=== PATIENT | male | born 1960 | race Caucasian/White ===

== ENCOUNTER → 2020-05-19 10:07 | Outpatient (BNVA) | payer MEDICAID, SELFPAY | PROVIDERS: Family Provider Family Medicine; PCP Family Medicine; Visit Provider Nurse Practitioner Family | DX: R53.83 Other fatigue (principal); E55.9 Vitamin D deficiency, unspecified; D64.9 Anemia, unspecified; E78.2 Mixed hyperlipidemia; I51.9 Heart disease, unspecified; E03.9 Hypothyroidism, unspecified; M10.9 Gout, unspecified | CPT/HCPCS: 36415; 80053; 80061; 81001; 82306; 82607; 82746; 83540; 84402; 84403; 84443; 84550; 85025 ==

== ENCOUNTER → 2020-07-17 11:44 | Outpatient (BNVA) | payer MEDICAID, SELFPAY | PROVIDERS: Family Provider Family Medicine; PCP Family Medicine; Visit Provider Nurse Practitioner Family | DX: I10 Essential (primary) hypertension (principal); J22 Unspecified acute lower respiratory infection; R10.11 Right upper quadrant pain; K04.7 Periapical abscess without sinus; K08.89 Other specified disorders of teeth and supporting structures | CPT/HCPCS: 71046; 74018; 80053; 81003; 85025 ==

== ENCOUNTER → 2020-07-22 10:41 | Outpatient (BNVA) | payer MEDICAID, SELFPAY | PROVIDERS: Family Provider Family Medicine; PCP Family Medicine; Visit Provider Nurse Practitioner Family | DX: J18.9 Pneumonia, unspecified organism (principal); F41.9 Anxiety disorder, unspecified | CPT/HCPCS: 71046 ==

== ENCOUNTER → 2020-12-14 10:43 | Outpatient (BNVA) | payer OTHER, MEDICAID, SELFPAY | PROVIDERS: Family Provider Family Medicine; PCP Family Medicine; Visit Provider Nurse Practitioner Family | DX: I10 Essential (primary) hypertension (principal); D64.9 Anemia, unspecified; E03.9 Hypothyroidism, unspecified; E78.2 Mixed hyperlipidemia; E55.9 Vitamin D deficiency, unspecified; Z79.899 Other long term (current) drug therapy; R74.8 Abnormal levels of other serum enzymes; R06.02 Shortness of breath; K04.7 Periapical abscess without sinus; F41.9 Anxiety disorder, unspecified | CPT/HCPCS: 71046; 80053; 80061; 81003; 82306; 82607; 83036; 83550; 84443; 85025 ==

== ENCOUNTER → 2020-12-15 09:05 | Outpatient (BNVA) | payer OTHER, MEDICAID, SELFPAY | PROVIDERS: Family Provider Family Medicine; PCP Family Medicine; Visit Provider Nurse Practitioner Family | DX: R74.8 Abnormal levels of other serum enzymes (principal); I10 Essential (primary) hypertension; D64.9 Anemia, unspecified; E03.9 Hypothyroidism, unspecified; E78.2 Mixed hyperlipidemia; E55.9 Vitamin D deficiency, unspecified; Z79.899 Other long term (current) drug therapy; R06.02 Shortness of breath; K04.7 Periapical abscess without sinus; J90 Pleural effusion, not elsewhere classified; F41.8 Other specified anxiety disorders | CPT/HCPCS: 86803 ==

== ENCOUNTER 2020-12-21 07:40 | Outpatient (CLI) | payer OTHER, MEDICAID, SELFPAY ==
--- NOTE | 2020-12-21 08:00 | US_ITS ---
WS: [id number] ULTRASOUND ABDOMEN LIMITED CLINICAL INFORMATION: R74.8 - Abnormal levels of other serum enzymes COMPARISON: None. FINDINGS: Liver Size: Normal. Craniocaudal length: 15.0 cm. Echogenicity: Dense coarse Surface nodularity: Present Mass (size and location): None. Bile ducts Intrahepatic ducts: Normal. Common bile duct diameter: 0.5 cm. Gallbladder Mild gallbladder wall thickening with mild edema may be related to liver disease Gallstones: None. Gallbladder sludge: None. Gallbladder wall thickenin.3 mm Pericholecystic fluid: None. Sonographic Lynn sign: Absent. Pancreas Echogenic can be seen with fatty infiltration Right kidney: Normal. Hydronephrosis: None. Size: 10.2 cm x 4.5 cm x 4.5 cm. Abdominal aorta and IVC Visualized portions are normal. Ascites: Present US/US abdomen limited [id number] IMPRESSION: 1. Slightly cirrhotic contour to the liver with diffuse fatty infiltration. Pe rihepatic ascites about the liver. Small right pleural effusion. Recommend leonardo elation with liver function tests. 2. Gallbladder is contracted with diffuse gallbladder wall thickening and mil d edema likely related to liver disease. No cholelithiasis. 3. Normal common bile duct. 4. No hydronephrosis in right kidney.
== END 2020-12-21 07:41 | disposition home or self-care (01) ==
PROVIDERS: PCP Nurse Practitioner Family; Visit Provider Nurse Practitioner Family
DX: R74.8 Abnormal levels of other serum enzymes (principal)
CPT/HCPCS: 76705

== ENCOUNTER 2021-01-20 09:22 | Outpatient (CLI) | payer OTHER, MEDICAID, SELFPAY ==
[2021-01-20] MEDS: iohexol 300 mg/mL 50 mL Btl PO (10:01)
--- NOTE | 2021-01-20 11:00 | CT_ITS ---
WS: [id number] CT ABDOMEN WITH AND WITHOUT CONTRAST HISTORY: R10.11 - Right upper quadrant pain 3 and postcontrast imaging through the abdomen. Oral contrast has been provided. Coronal and sagittal reformats are submitted. All CT scans at [facility] use at least one of these dose optim ization techniques: automated exposure control; mA and/or kV adjustment per patient size (includes ta rgeted exams where dose is matched to clinical indication); or iterative reconstruction. CONTRAST: Omnipaque 300; 95 mL IV. DLP: 1284.74 mGycm COMPARISON: 12/21/2020 ultrasound. Lower thorax: Moderate RIGHT and small LEFT pleural effusions. Compressive atelectasis with edema at the lung bases. There is marked enlargement of the heart chambers. No pericardial effusion. Liver: Very heterogeneous liver. No discrete masses or bile duct dilatation. Liver is of diffusely lo w attenuation with loss of the normal landmarks. Gallbladder: Normal. Pancreas: Small atrophic pancreas. Spleen: Normal. Adrenals: Normal. Right kidney: Normal. Left kidney: Normal. Aorta: Normal size aorta. IVC filter present the level of the renal veins. GI tract: Normal. Moderate amount of ascites throughout the abdomen.. Perisplenic fluid. Fluid extends into the paracolic gutters and there is also mesenteric edema. Abdominal wall: No hernia. 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 CT/CT abdomen wo/w con [id number] IMPRESSION: 1. Moderate ascites and mesenteric edema and anasarca. 2. Moderate RIGHT and small LEFT pleural effusion. 3. Marked cardiomegaly. 4. Cirrhosis with normal size spleen. 5. IVC filter.
[2021-01-20] MEDS: iohexol 300 mg/mL 100 mL Btl IV (11:22)
== END 2021-01-20 09:23 | disposition home or self-care (01) ==
PROVIDERS: PCP Nurse Practitioner Family; Visit Provider Nurse Practitioner Family
DX: R10.11 Right upper quadrant pain (principal); K74.60 Unspecified cirrhosis of liver; I51.7 Cardiomegaly; J90 Pleural effusion, not elsewhere classified; R18.8 Other ascites
CPT/HCPCS: 74170; Q9967

== ENCOUNTER → 2021-01-22 12:03 | Outpatient (BNVA) | payer OTHER, MEDICAID, SELFPAY | PROVIDERS: PCP Nurse Practitioner Family; Visit Provider Nurse Practitioner Family | DX: S69.91XA Unspecified injury of right wrist, hand and finger(s), initial encounter (principal); X58.XXXA Exposure to other specified factors, initial encounter | CPT/HCPCS: 73110 ==

== ENCOUNTER 2021-01-29 10:16 | Inpatient (IN) | payer MEDICARE, OTHER, MEDICAID, SELFPAY ==
[2021-01-29] VITALS (11 sets, daily range): BP systolic 93–108; BP diastolic 64–76; PULSE 40–69; RESP 18–32; TEMP 36.4–36.7; O2SAT 88–100; BMI 25.8
[2021-01-29 10:37] LABS: Glucose Point of Care 105 mg/dL (70-110)
--- NOTE | 2021-01-29 10:44 | XR_ITS ---
WS: [id number] Portable AP upright chest, 01/29/2021 Clinical Data: dyspnea/cough Comparison: PA and lateral chest, 12/14/2020. Findings: The bilateral pleural effusions remain the same. There are now patchy opacities in both low er lobes. The upper lobes are spared. The heart is enlarged. No masses are seen. There are monitor le ads on the chest wall. XR/XR chest 1V portable [id number] Impression: 1. No change in bilateral pleural effusions. 2. Development of bilateral lower lobe patchy opacities recommend follow-up [facility] st x-ray in one to 2 days.
[2021-01-29 10:47] LABS: Glucose Point of Care 96 mg/dL (70-110)
--- NOTE | 2021-01-29 10:51 | ED_ITS ---
HPI - Weakness General: Chief complaint: Weakness Stated complaint: LOW BLOOD SUGAR/ JAUNDICED Time Seen by Provider: 01/29/21 10:28 History of Present Illness: HPI Narrative: 60-year-old male brought into the ER by EMS unable to get out of bed this morning. The EMS reports that he has been declining over the last few days. He had a visit in the primary care office last week he was being evaluated for abdominal pain according his notes he has a history of heavy drinking. Patient had been seen recently by his primary care provider and they had scheduled him to be seen in evaluation for his worsening liver function and increasing jaundice thought to be due to alcoholic cirrhosis. He has not yet had that evaluation. He has had some cough and shortness of breath no vomiting or diarrhea. No hematochezia or hematemesis. MD Complaint: generalized weakness Onset (ago): day(s) Duration: progressively worsening Location: generalized Severity: moderate Relieving factors: none Exacerbating factors: none Associated symptoms: Reports confusion, decreased appetite, nausea and short of breath; Denies chest pain, chills, diaphoresis, dysuria, easy bruising, fever(s), headache(s), myalgias, rash, syncope or vomiting Review of Systems General: Reports: ROS unobtainable due to mental status Const: Denies: fever(s), chills or diaphoresis Card: Denies: chest pain or syncope GI: Reports: nausea; Denies: vomiting : Denies: dysuria Neuro: Reports: confusion; Denies: headache(s) Tj/Lymph: Denies: easy bruising PFS ED PFSH: Medical History (Updated 01/29/21 @ 16:27 by Abdoulaye Benavidez DO) Abdominal pain Anemia Anxiety Anxiety and depression Bacterial conjunctivitis Cardiomegaly Cirrhosis COPD (chronic obstructive pulmonary disease) Coronary artery disease Dental infection Elevated alkaline phosphatase level Essential hypertension Fatigue Gout History of smoking 25-50 pack [address] History of ST elevation myocardial infarction (STEMI) Hypothyroidism Impacted cerumen of right ear Ischemic cardiomyopathy Lower respiratory infection Medication management Mixed hyperlipidemia Nasal congestion Nausea and vomiting Pain, dental Pleural effusion Pleural effusion Pulmonary hypertension Right wrist injury RUQ pain Shortness of breath Symptoms of urinary tract infection Vasculogenic erectile dysfunction Vitamin D deficiency Surgical History S/P CABG x 4 Status post coronary artery stent placement Status post insertion of inferior vena caval filter Social History Smoking and tobacco status: never smoked Alcohol intake: never Physical Exam Const: COMMON NORMALS: no acute distress GENERAL APPEARANCE: cooperative and comfortable ORIENTATION/CONSCIOUSNESS: Yes awake, Yes oriented to person, Yes oriented to place and Yes oriented to time HENMT: COMMON NORMALS: normocephalic, atraumatic and hearing grossly normal bilaterally HEAD & SCALP: normocephalic and atraumatic Neck/C-Spine: COMMON NORMALS: no JVD Resp: COMMON NORMALS: normal respiratory effort, No retractions, No use of accessory muscles and clear to auscultation bilaterally AUSCULTATION: clear to auscultation bilaterally Cardio: COMMON NORMALS: no JVD, regular rate, regular rhythm and No murmurs present (Cardio) RATE: regular rate RHYTHM: regular rhythm GI: COMMON NORMALS: Soft to palpation and No hepatosplenomegaly present AUSCULTATION: Yes normoactive bowel sounds PALPATION: Yes Soft to palpation, No Tenderness to palpation present (GI), No Guarding due to palpation present (GI) and Yes No hepatosplenomegaly present Extremity: COMMON NORMALS: normal to inspection, capillary refill normal, no clubbing, cyanosis or edema, no calf tenderness and no pedal edema Neuro: SENSORIUM/ORIENTATION: Yes oriented to person, Yes oriented to place and Yes oriented to time Skin: COMMON NORMALS: no rashes or lesions noted GENERAL SKIN EXAM: no rashes or lesions noted Course Vital Signs: Vital signs: Vital Signs Temperature 97.6 F 01/29/21 10:18 Pulse Rate 62 01/29/21 16:19 Respiratory Rate 21 H 01/29/21 16:19 Blood Pressure 105/64 01/29/21 16:19 Pulse Oximetry 94 01/29/21 16:19 MDM - Weakness MDM Narrative: Medical decision making narrative: INR and T bili are markedly elevated suspect is from the stress of the pneumonia we will treat him for his pneumonia fluid hydration discussed with hepatology at [place] they did not feel there is anything different they would do at this point although they do think they will need to see him at some point to evaluate him as a transplant candidate discussed Dr. Pressley he is willing to accept the patient orders written. Lab Data: Labs: Lab Results 01/29/21 01/29/21 01/29/21 Range/Units 10:28 10:45 11:00 WBC (4.0-10.0) 10^3/ uL RBC (4.1-5.3) 10^6/u L Hgb (11.7-16.6) g/dL Hct (42.0-52.0) % MCV (80-94) fL MCH (28.0-34.0) pg MCHC (30.0-36.0) g/dL RDW (12.1-15.1) % Plt Count (130-400) 10^3/c mm MPV (7.4-10.4) fL Neut % (Auto) % Lymph % (Auto) % [place] % (Auto) % Eos % (Auto) % Baso % (Auto) % Neut # (Auto) (1.8-7.7) 10^3/u L Lymph # (Auto) (0.8-4.8) 10^3/u L [place] # (Auto) (0.2-0.9) 10^3/u L Eos # (Auto) (0.0-0.8) 10^3/u L Baso # (Auto) (0.0-0.1) 10^3/u L Nucleated RBC % (a uto) % Nucleated RBCs # /100WBC PT (12.1-14.9) SECO NDS INR (0.8-1.2) APTT (23.9-36.7) SECO NDS Specimen Type Arterial Sample Site Radial, left ABG pH 7.44 (7.35-7.45) ABG pCO2 33.0 L (35-45) mmHg ABG pO2 94.8 (80.0-100.0) mmH g ABG HCO3 22.3 (22-26) mmol/L ABG O2 Saturation 97.8 ABG Base Excess -1.2 (-2.0-2.0) mmol/ L Gume Test Pos A-a O2 Gradient 8.3 (5-10) mmHg Hematocrit 43.1 (42-52) % Hgb O2 Saturation 95.8 (95-100) % Carboxyhemoglobin 1.2 (0.4-20.1) %THgb Methemoglobin 0.8 (0.4-1.5) % Total Hemoglobin 14.1 (14-18) g/dL Sodium 135.0 (131-143) mmol/L Potassium 3.5 (3.5-5.0) mmol/L Glucose 88.0 (70-115) mg/dL Ionized Calcium 1.0 L (1.1-1.4) mmol/L O2 Delivery Device Nc O2 Liters/Min 2.0 % FiO2 28.0 % Asbestos Cement Sheet Supervisor ID Ed Chloride (98-107) mmol/L Carbon Dioxide (22-29) mmol/L Anion Gap (5-19) BUN (8-23) mg/dL Creatinine (0.7-1.2) mg/dL GFR Calculation (90-130) mL/min POC Glucose 105 96 (70-110) mg/dL Calculated Osmolal ity (285-295) mOsm/k g Lactic Acid (0.5-2.2) mmol/L Calcium (8.5-10.5) mg/dL Magnesium (1.7-2.3) mg/dL Total Bilirubin (0.15-1.2) mg/dL AST (0-40) U/L ALT (0-41) U/L Alkaline Phosphata se (40-130) IU/L Ammonia (16-60) umol/L Creatine Kinase (39-308) U/L Troponin T Baselin e (0-15) ng/L Total Protein (6.6-8.7) g/dL Albumin (3.5-5.2) g/dL Globulin (1.3-4.6) g/dL Lipase (13-60) U/L Urine Color (Yellow) Urine Appearance (CLEAR) Urine pH (5-7) Ur Specific Gravit y (1.005-1.030) Urine Protein (Negative) Urine Glucose (UA) (Normal) Urine Ketones (Negative) Urine Blood (Negative) Urine Nitrate (Negative) Urine Bilirubin (Negative) Urine Urobilinogen (Negative) mg/dL Ur Leukocyte Ruthie ase (Negative) Urine RBC (0-2) /hpf Urine WBC (0-5) /hpf Ur Squamous Epith Cells (0-5) /hpf Amorphous Sediment Urine Bacteria (NONE) /hpf Urine Mucus /hpf Digoxin (0.6-1.2) ng/mL 01/29/21 01/29/21 01/29/21 Range/Units 11:08 11:08 11:08 WBC 8.0 (4.0-10.0) 10^3/ uL RBC 5.63 H (4.1-5.3) 10^6/u L Hgb 13.7 (11.7-16.6) g/dL Hct 41.2 L (42.0-52.0) % MCV 73.2 L (80-94) fL MCH 24.3 L (28.0-34.0) pg MCHC 33.3 (30.0-36.0) g/dL RDW 22.5 H (12.1-15.1) % Plt Count 185 (130-400) 10^3/c mm MPV 10.8 H (7.4-10.4) fL Neut % (Auto) 79.7 % Lymph % (Auto) 12.1 % [place] % (Auto) 4.1 % Eos % (Auto) 3.0 % Baso % (Auto) 0.7 % Neut # (Auto) 6.41 (1.8-7.7) 10^3/u L Lymph # (Auto) 1.0 (0.8-4.8) 10^3/u L [place] # (Auto) 0.3 (0.2-0.9) 10^3/u L Eos # (Auto) 0.2 (0.0-0.8) 10^3/u L Baso # (Auto) 0.1 (0.0-0.1) 10^3/u L Nucleated RBC % (a uto) 0 % Nucleated RBCs # 0.0 /100WBC PT (12.1-14.9) SECO NDS INR (0.8-1.2) APTT (23.9-36.7) SECO NDS Specimen Type Sample Site ABG pH (7.35-7.45) ABG pCO2 (35-45) mmHg ABG pO2 (80.0-100.0) mmH g ABG HCO3 (22-26) mmol/L ABG O2 Saturation ABG Base Excess (-2.0-2.0) mmol/ L Gume Test A-a O2 Gradient (5-10) mmHg Hematocrit (42-52) % Hgb O2 Saturation (95-100) % Carboxyhemoglobin (0.4-20.1) %THgb Methemoglobin (0.4-1.5) % Total Hemoglobin (14-18) g/dL Sodium (131-143) mmol/L Potassium (3.5-5.0) mmol/L Glucose (70-115) mg/dL Ionized Calcium (1.1-1.4) mmol/L O2 Delivery Device O2 Liters/Min % FiO2 % Asbestos Cement Sheet Supervisor ID Chloride (98-107) mmol/L Carbon Dioxide (22-29) mmol/L Anion Gap (5-19) BUN (8-23) mg/dL Creatinine (0.7-1.2) mg/dL GFR Calculation (90-130) mL/min POC Glucose (70-110) mg/dL Calculated Osmolal ity (285-295) mOsm/k g Lactic Acid 1.5 (0.5-2.2) mmol/L Calcium (8.5-10.5) mg/dL Magnesium (1.7-2.3) mg/dL Total Bilirubin (0.15-1.2) mg/dL AST (0-40) U/L ALT (0-41) U/L Alkaline Phosphata se (40-130) IU/L Ammonia (16-60) umol/L Creatine Kinase (39-308) U/L Troponin T Baselin e (0-15) ng/L Total Protein (6.6-8.7) g/dL Albumin (3.5-5.2) g/dL Globulin (1.3-4.6) g/dL Lipase (13-60) U/L Urine Color (Yellow) Urine Appearance (CLEAR) Urine pH (5-7) Ur Specific Gravit y (1.005-1.030) Urine Protein (Negative) Urine Glucose (UA) (Normal) Urine Ketones (Negative) Urine Blood (Negative) Urine Nitrate (Negative) Urine Bilirubin (Negative) Urine Urobilinogen (Negative) mg/dL Ur Leukocyte Ruthie ase (Negative) Urine RBC (0-2) /hpf Urine WBC (0-5) /hpf Ur Squamous Epith Cells (0-5) /hpf Amorphous Sediment Urine Bacteria (NONE) /hpf Urine Mucus /hpf Digoxin 1.7 H (0.6-1.2) ng/mL 03/04/1601/29/21 01/29/21 Range/Units 11:08 11:08 11:08 WBC (4.0-10.0) 10^3/ uL RBC (4.1-5.3) 10^6/u L Hgb (11.7-16.6) g/dL Hct (42.0-52.0) % MCV (80-94) fL MCH (28.0-34.0) pg MCHC (30.0-36.0) g/dL RDW (12.1-15.1) % Plt Count (130-400) 10^3/c mm MPV (7.4-10.4) fL Neut % (Auto) % Lymph % (Auto) % [place] % (Auto) % Eos % (Auto) % Baso % (Auto) % Neut # (Auto) (1.8-7.7) 10^3/u L Lymph # (Auto) (0.8-4.8) 10^3/u L [place] # (Auto) (0.2-0.9) 10^3/u L Eos # (Auto) (0.0-0.8) 10^3/u L Baso # (Auto) (0.0-0.1) 10^3/u L Nucleated RBC % (a uto) % Nucleated RBCs # /100WBC PT 21.00 H (12.1-14.9) SECO NDS INR 1.74 H (0.8-1.2) APTT 47.4 H (23.9-36.7) SECO NDS Specimen Type Sample Site ABG pH (7.35-7.45) ABG pCO2 (35-45) mmHg ABG pO2 (80.0-100.0) mmH g ABG HCO3 (22-26) mmol/L ABG O2 Saturation ABG Base Excess (-2.0-2.0) mmol/ L Gume Test A-a O2 Gradient (5-10) mmHg Hematocrit (42-52) % Hgb O2 Saturation (95-100) % Carboxyhemoglobin (0.4-20.1) %THgb Methemoglobin (0.4-1.5) % Total Hemoglobin (14-18) g/dL Sodium 133 L (131-143) mmol/L Potassium 4.2 (3.5-5.0) mmol/L Glucose 87 (70-115) mg/dL Ionized Calcium (1.1-1.4) mmol/L O2 Delivery Device O2 Liters/Min % FiO2 % Asbestos Cement Sheet Supervisor ID Chloride 99 (98-107) mmol/L Carbon Dioxide 21 L (22-29) mmol/L Anion Gap 17.2 (5-19) BUN 24 H (8-23) mg/dL Creatinine 2.8 H (0.7-1.2) mg/dL GFR Calculation 23.1 L (90-130) mL/min POC Glucose (70-110) mg/dL Calculated Osmolal ity 279 L (285-295) mOsm/k g Lactic Acid (0.5-2.2) mmol/L Calcium 7.6 L (8.5-10.5) mg/dL Magnesium 2.6 H (1.7-2.3) mg/dL Total Bilirubin 5.9 H (0.15-1.2) mg/dL AST 53 H (0-40) U/L ALT 32 (0-41) U/L Alkaline Phosphata se 366 H (40-130) IU/L Ammonia 56 (16-60) umol/L Creatine Kinase 214 (39-308) U/L Troponin T Baselin e (0-15) ng/L Total Protein 5.8 L (6.6-8.7) g/dL Albumin 2.3 L (3.5-5.2) g/dL Globulin 3.5 (1.3-4.6) g/dL Lipase 34 (13-60) U/L Urine Color (Yellow) Urine Appearance (CLEAR) Urine pH (5-7) Ur Specific Gravit y (1.005-1.030) Urine Protein (Negative) Urine Glucose (UA) (Normal) Urine Ketones (Negative) Urine Blood (Negative) Urine Nitrate (Negative) Urine Bilirubin (Negative) Urine Urobilinogen (Negative) mg/dL Ur Leukocyte Ruthie ase (Negative) Urine RBC (0-2) /hpf Urine WBC (0-5) /hpf Ur Squamous Epith Cells (0-5) /hpf Amorphous Sediment Urine Bacteria (NONE) /hpf Urine Mucus /hpf Digoxin (0.6-1.2) ng/mL 01/29/21 01/29/21 Range/Units 11:08 14:30 WBC (4.0-10.0) 10^3/ uL RBC (4.1-5.3) 10^6/u L Hgb (11.7-16.6) g/dL Hct (42.0-52.0) % MCV (80-94) fL MCH (28.0-34.0) pg MCHC (30.0-36.0) g/dL RDW (12.1-15.1) % Plt Count (130-400) 10^3/c mm MPV (7.4-10.4) fL Neut % (Auto) % Lymph % (Auto) % [place] % (Auto) % Eos % (Auto) % Baso % (Auto) % Neut # (Auto) (1.8-7.7) 10^3/u L Lymph # (Auto) (0.8-4.8) 10^3/u L [place] # (Auto) (0.2-0.9) 10^3/u L Eos # (Auto) (0.0-0.8) 10^3/u L Baso # (Auto) (0.0-0.1) 10^3/u L Nucleated RBC % (a uto) % Nucleated RBCs # /100WBC PT (12.1-14.9) SECO NDS INR (0.8-1.2) APTT (23.9-36.7) SECO NDS Specimen Type Sample Site ABG pH (7.35-7.45) ABG pCO2 (35-45) mmHg ABG pO2 (80.0-100.0) mmH g ABG HCO3 (22-26) mmol/L ABG O2 Saturation ABG Base Excess (-2.0-2.0) mmol/ L Gume Test A-a O2 Gradient (5-10) mmHg Hematocrit (42-52) % Hgb O2 Saturation (95-100) % Carboxyhemoglobin (0.4-20.1) %THgb Methemoglobin (0.4-1.5) % Total Hemoglobin (14-18) g/dL Sodium (131-143) mmol/L Potassium (3.5-5.0) mmol/L Glucose (70-115) mg/dL Ionized Calcium (1.1-1.4) mmol/L O2 Delivery Device O2 Liters/Min % FiO2 % Asbestos Cement Sheet Supervisor ID Chloride (98-107) mmol/L Carbon Dioxide (22-29) mmol/L Anion Gap (5-19) BUN (8-23) mg/dL Creatinine (0.7-1.2) mg/dL GFR Calculation (90-130) mL/min POC Glucose (70-110) mg/dL Calculated Osmolal ity (285-295) mOsm/k g Lactic Acid (0.5-2.2) mmol/L Calcium (8.5-10.5) mg/dL Magnesium (1.7-2.3) mg/dL Total Bilirubin (0.15-1.2) mg/dL AST (0-40) U/L ALT (0-41) U/L Alkaline Phosphata se (40-130) IU/L Ammonia (16-60) umol/L Creatine Kinase (39-308) U/L Troponin T Baselin e 61 H (0-15) ng/L Total Protein (6.6-8.7) g/dL Albumin (3.5-5.2) g/dL Globulin (1.3-4.6) g/dL Lipase (13-60) U/L Urine Color Dark yellow (Yellow) Urine Appearance Sl hazy (CLEAR) Urine pH 5 (5-7) Ur Specific Gravit y 1.020 (1.005-1.030) Urine Protein 1+ H (Negative) Urine Glucose (UA) Norm (Normal) Urine Ketones Negative (Negative) Urine Blood 2+ H (Negative) Urine Nitrate Negative (Negative) Urine Bilirubin 1+ H (Negative) Urine Urobilinogen 1 H (Negative) mg/dL Ur Leukocyte Ruthie ase Negative (Negative) Urine RBC 0-4 H (0-2) /hpf Urine WBC None (0-5) /hpf Ur Squamous Epith Cells 10-15 H (0-5) /hpf Amorphous Sediment Not Reportable Urine Bacteria 1+ H (NONE) /hpf Urine Mucus Trace /hpf Digoxin (0.6-1.2) ng/mL Discharge Plan Discharge Patient Disposition: Admitted As Inpatient Admit Provider: Chapincito Pressley Clinical Impression: Pneumonia, Hepatic encephalopathy, Acute renal failure, Digoxin toxicity Condition: Stable Coding Level of Care Code ED Title Attorney for [facility] Fwd Exam Comprehensive
[2021-01-29 11:09] LABS: ABG PH Result 7.44 (7.35-7.45); Alveolar-Arterial Oxygen Gradi 8.3 mmHg (5-10); Arterial Blood Gas Hematocrit 43.1 % (42-52); Base Excess ABG -1.2 mmol/L (-2.0-2.0); Blood Gas Allen Test Pos; Blood Gas Operator Identificat ED; Blood Gas Sample Site Radial, left; Blood Gas Sample Type Arterial; Carboxyhemoglobin 1.2 %THgb (0.4-20.1); HCO3 ABG 22.3 mmol/L (22-26); HGB O2 Sat 95.8 % (95-100); Methemoglobin 0.8 % (0.4-1.5); Oxygen Device NC; Oxygen Saturation ABG 97.8; PO2 ABG 94.8 mmHg (80.0-100.0); Potassium Level - ABG 3.5 mmol/L (3.5-5.0); Total Hemoglobin 14.1 g/dL (14-18)
[2021-01-29 11:24] LABS: Basophils # 0.1 10^3/uL (0.0-0.1); Basophils % 0.7 %; Eosinophils # 0.2 10^3/uL (0.0-0.8); Hematocrit 41.2 % (42.0-52.0); Hemoglobin 13.7 g/dL (11.7-16.6); Lymphocytes % 12.1 %; Mean Corpuscular HGB Conc 33.3 g/dL (30.0-36.0); Mean Corpuscular Hemoglobin 24.3 pg (28.0-34.0); Mean Corpuscular Volume 73.2 fL (80-94); Monocytes # 0.3 10^3/uL (0.2-0.9); Monocytes % 4.1 %; Neutrophils # 6.41 10^3/uL (1.8-7.7); Neutrophils % 79.7 %; Nucleated Red Blood Cells % 0 %; Platelet Count 185 10^3/cmm (130-400); Red Blood Count 5.63 10^6/uL (4.1-5.3); Red Cell Distribution Width 22.5 % (12.1-15.1)
[2021-01-29 11:34] LABS: Mean Platelet Volume 10.8 fL (7.4-10.4)
[2021-01-29 11:37] LABS: INR 1.74 (0.8-1.2)
[2021-01-29 11:38] LABS: Partial Thromboplastin Time 47.4 SECONDS (23.9-36.7)
[2021-01-29 11:44] LABS: Digoxin 1.7 ng/mL (0.6-1.2)
[2021-01-29 11:45] LABS: Alanine Aminotransferase 32 U/L (0-41); Albumin Level 2.3 g/dL (3.5-5.2); Alkaline Phosphatase 366 IU/L (40-130); Blood Urea Nitrogen 24 mg/dL (8-23); Calcium 7.6 mg/dL (8.5-10.5); Carbon Dioxide 21 mmol/L (22-29); Chloride 99 mmol/L (98-107); Creatine Phosphokinase 214 U/L (39-308); Globulin 3.5 g/dL (1.3-4.6); Glomerular Filtration Rate 23.1 mL/min (90-130); Glucose 87 mg/dL (65-115); Lipase 34 U/L (13-60); Magnesium 2.6 mg/dL (1.7-2.3); Osmolality Calculated 279 mOsm/kg (285-295); Sodium 133 mmol/L (136-145); Total Bilirubin 5.9 mg/dL (0.15-1.2); Total Protein 5.8 g/dL (6.6-8.7)
[2021-01-29 11:46] LABS: Lactic Sepsis W/Reflex 1.5 mmol/L (0.5-2.2)
[2021-01-29 11:52] LABS: Anion Gap 17.2 (5-19); Potassium 4.2 mmol/L (3.5-5.1)
[2021-01-29 11:53] LABS: Aspartate Amino Transferase 53 U/L (0-40)
[2021-01-29] MEDS: levofloxacin-dextrose 5 % 750 MG/150 ML PREMIX 100 MG IV (11:59)
[2021-01-29] MEDS: sodium chloride 0.9% 1,000 ML 999 ML IV ×2 (11:59→14:37)
--- NOTE | 2021-01-29 12:02 | ECG_ITS ---
[facility] Test Date: 2021-01-29 Pat Name: Omer Danielle Department: Room: 254 Gender: Male [employer]ue Cutting Press Operator: : 1960 Requested By: Abdoulaye Esparza Order Number: [id number] Rayshawn MD: Rod Cheney M.D. Measurements Intervals [place] Rate: 60 P: 103 [place]: 164 QRS: 262 QRSD: 173 T: 0 QT: 474 QTc: 476 Interpretive Statements SINUS RHYTHM POSSIBLE LEFT ATRIAL ENLARGEMENT [-0.1mV P WAVE IN V1/V2] RIGHT AXIS DEVIATION [QRS AXIS > 100] RIGHT BUNDLE BRANCH BLOCK [120+ ms QRS DURATION, UPRIGHT V1, 40+ ms S IN I/aVL/V4/V5/V6] ST DEPRESSION, CONSIDER SUBENDOCARDIAL INJURY [0.1+ mV ST DEPRESSION] Compared to ECG 02/13/2019 19:01:23 ST (T wave) deviation now present T-wave abnormality no longer present Possible ischemia no longer present Myocardial infarct finding still present Electronically Signed On 01-29-2021 18:27:42 BOARD FINISHER by Rod Cheney M.D. [id number]
--- NOTE | 2021-01-29 12:06 | PC.NURSE ---
IV NS Bolus NS bolus delayed as 1000mL initiated by EMS was allowed to finished before initiating bag ordered by ED physician
[2021-01-29 12:20] LABS: Ammonia 56 umol/L (16-60)
--- NOTE | 2021-01-29 13:24 | US_ITS ---
WS: [id number] RIGHT UPPER QUADRANT ULTRASOUND HISTORY: cirrhosis COMPARISON: 12/21/[address] abdomen 01/20/2021 Liver: 13.4 cm in length. Liver is small and shrunken from cirrhosis. No bile duct dilatation. Gallbladder: Normally distended gallbladder with diffuse gallbladder wall thickening. No stones ident ified. Gallbladder wall measures up to 5 mm. CBD: 0.5 cm Pancreas: Not visualized. Right kidney: 10.3 cm in length. Normal size and echogenicity. No hydronephrosis or mass. Aorta and IVC: Unremarkable abdominal aorta and IVC. Small amount of ascites and small bilateral pleural effusions. US/US liver [id number] IMPRESSION: 1. Small amount of ascites. 2. Small RIGHT pleural effusion. 3. Advanced cirrhosis. 4. Gallbladder wall thickening due to hepatocellular disease. No stones.
--- NOTE | 2021-01-29 13:59 | PC.NURSE ---
EKG done at 1342 and shown to ER doctor.
--- NOTE | 2021-01-29 14:02 | ECG_ITS ---
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 Measurements Intervals [place] Rate: 74 P: 85 [place]: 166 QRS: 253 QRSD: 173 T: 180 QT: 358 QTc: 398 Interpretive Statements SINUS RHYTHM WITH OCCASIONAL VENTRICULAR PREMATURE COMPLEXES WITH OCCASIONAL SUPRAVENTRICULAR PREMATURE COMPLEXES INTRAVENTRICULAR CONDUCTION DELAY [130+ ms QRS DURATION] INFERIOR MYOCARDIAL INFARCTION , OF INDETERMINATE AGE [40+ ms Q WAVE AND/OR ST/T ABNORMALITY IN II/aVF] ANTEROLATERAL MYOCARDIAL INFARCTION , OF INDETERMINATE AGE [40+ ms Q WAVE IN I/aVL/V3-V6] Compared to ECG 02/13/2019 19:01:23 Ventricular premature complex(es) now present Intraventricular conduction delay now present T-wave abnormality no longer present Possible ischemia no longer present Myocardial infarct finding still present Electronically Signed On 01-29-2021 19:05:23 ROLL BUCKER by Rod Cheney M.D. [id number]
[2021-01-29 15:04] LABS: Troponin(5th) Baseline 61 ng/L (0-15)
[2021-01-29 15:09] LABS: Blood Urine 2+ (Negative); Glucose Urine UA Norm (Normal); Ketones Urine Negative (Negative); Nitrate Urine Negative (Negative); Protein Urine 1+ (Negative); Urine Appearance SL Hazy (CLEAR); Urine Color Dark Yellow (Yellow); pH Urine 5 (5-7)
[2021-01-29 15:10] LABS: Add Urine Culture? No; Add Urine Microscopic? YES; Bacteria Urine 1+ /hpf; Bilirubin Urine 1+ (Negative); Leukocyte Esterase Urine Negative (Negative); Mucus Urine TRACE /hpf; RBC Urine 0-4 /hpf (0-2); Urobilinogen Urine 1 mg/dL (Negative)
--- NOTE | 2021-01-29 15:10 | PM.HP ---
Providers/Chief Complaint Primary Care Provider: SAURABH Lam Chief Complaint: LOW BLOOD SUGAR/ JAUNDICED History of Present Illness Omer Danielle is a 60 year old male with pmh of hypothyroidism,gout,alcohol abuse, alcholic liver cirrhosis, HFrEF, a.fib, CAD S/P CABG, DVT with I.VC Filter, COPD, came in with c/o worsening weakness,physical decline,worsening mentation started started 3/4 days back.Upon arrival in the ER he was worked up for the above mentioned complaint. ER physician talked to [facility] for possible transfer given INR and T bili were elevated hepatology at [place] did not feel there is anything different they would do at this point although they do think they will need to see him at some point to evaluate him as a transplant candidate. Patient was worked up for above mention complaint. Pertinent labs in ER : Ammonia :53, INR: 1.74,T.Bili: 5.9, AST:53 ,ALT: 29 , ALP: 366, ,BUN: 24, SCR : 2.8 , Glucose: 87 , WBC:5.44, Serum Digoxin level:1.7 Pertinent imaging studies : RIGHT UPPER QUADRANT ULTRASOUND: Small amount of ascites. Small RIGHT pleural effusion. Advancedd cirrhosis. xRAY CHEST : bilateral lower lobe patchy opacities. bilateral pleural effusions. ER Medications: Digoxin immune romaine : 40 mg I.V 81 Dose as well Levofloxacin 750 mg i.v * 1 dose. I.V Hydration with N.S Review of Systems Card: Denies: palpitations Resp: Denies: dyspnea, productive cough, wheezing or pain on inspiration GI: Denies: diarrhea or constipation : Denies: flank pain or difficulty urinating Musc: Denies: back pain, extremity pain or extremity swelling Neuro: Denies: headache(s), difficulty walking or confusion Medications/Allergies Home Medications Medication Instructions Recorded Confirmed Last Taken Type neomycin 3.5 mg-polymyxin 10,000 1 drp OPHTHALMIC (EYE) BID 7 Days 12/14/20 01/29/21 Unknown Rx unit-hydrocort 10 mg/mL eye #7.5 ml drop,susp melatonin 5 mg capsule 10 mg PO BEDTIME PRN 12/17/20 01/29/21 Unknown History multivit,Ca,min-iron 8 mg-folic 1 tab PO DAILY@09 12/17/20 01/29/21 01/28/21 History acid 200 mcg-lycopene 600 mcg tablet alprazolam 0.5 mg tablet 0.5 mg PO TID PRN 30 Days #90 tab 01/15/21 01/29/21 01/28/21 Rx fluticasone propionate 50 1 spray INTRANASAL DAILY 30 Days 01/15/21 01/29/21 Unknown Rx mcg/actuation nasal #16 g spray,suspension tramadol 50 mg tablet 50 mg PO Q8H PRN 5 Days #15 tab 01/22/21 01/29/21 Unknown Rx Coreg 6.25 mg PO BID@01/29/21 01/29/21 01/28/21 History Lexapro 20 mg PO DAILY@209901/29/21 01/29/21 01/28/21 History Miralax 17 g PO DAILY PRN 01/29/21 01/29/21 Unknown History allopurinol 100 mg PO DAILY@209901/29/21 01/29/21 01/28/21 History atorvastatin 80 mg PO DAILY@209901/29/21 01/29/21 01/28/21 History clopidogrel 75 mg PO DAILY@01/29/21 01/29/21 01/28/21 History digoxin 125 mcg PO DAILY@01/29/21 01/29/21 01/28/21 History furosemide 40 mg PO DAILY@01/29/21 01/29/21 01/28/21 History levothyroxine 100 mcg PO DAILY@209901/29/21 01/29/21 01/28/21 History potassium chloride 20 meq PO DAILY@01/29/21 01/29/21 01/28/21 History Allergies Allergy/AdvReac Type Severity Reaction Status Date / Time albuterol Allergy hyperactive Verified 01/22/21 11:10 PFSH Acute PFSH: Medical History (Updated 01/29/21 @ 21:39 by Chapincito Pressley MD) Abdominal pain Anemia Anxiety Anxiety and depression Bacterial conjunctivitis Cardiomegaly Cirrhosis COPD (chronic obstructive pulmonary disease) Coronary artery disease Dental infection Elevated alkaline phosphatase level Essential hypertension Fatigue Gout History of smoking 25-50 pack [address] History of ST elevation myocardial infarction (STEMI) Hypothyroidism Impacted cerumen of right ear Ischemic cardiomyopathy Lower respiratory infection Medication management Mixed hyperlipidemia Nasal congestion Nausea and vomiting Pain, dental Pleural effusion Pleural effusion Pulmonary hypertension Right wrist injury RUQ pain Shortness of breath Symptoms of urinary tract infection Vasculogenic erectile dysfunction Vitamin D deficiency Surgical History S/P CABG x 4 Status post coronary artery stent placement Status post insertion of inferior vena caval filter Social History Smoking and tobacco status: never smoked Alcohol intake: never Vitals/I&O/Wt Last Vital Signs Temp 97.6 F 01/29/21 10:18 Pulse 62 01/29/21 13:00 Resp 20 H 01/29/21 13:00 BP 99/66 01/29/21 13:00 Pulse Ox 94 01/29/21 13:00 01/29/21 01/29/21 01/29/21 06:59 14:59 22:59 Intake Total 1204 / 1204 Balance 1204 / 1204 Weight last 48 hrs Weight 72.575 kg Physical Exam Const: COMMON NORMALS: patient oriented x3 HENMT: COMMON NORMALS: normocephalic and atraumatic HEAD & SCALP: normocephalic and atraumatic Chest: COMMONS NORMALS: normal inspection of the chest and normal palpation of entire chest wall CHEST: Yes Symmetrical chest wall rise Resp: COMMON NORMALS: normal respiratory effort and clear to auscultation bilaterally EFFORT & INSPECTION: Yes symmetric chest movement AUSCULTATION: clear to auscultation bilaterally Cardio: COMMON NORMALS: regular rate, regular rhythm, S1 normal heart sound present, S2 normal heart sound present, No gallops present (Cardio), No murmurs present (Cardio), No rub (Cardio) and Peripheral pulses 2+ throughout RATE: regular rate RHYTHM: regular rhythm HEART SOUNDS: S1 normal heart sound present and S2 normal heart sound present PERIPHERAL PULSES: Peripheral pulses 2+ throughout GI: COMMON NORMALS: Normal to inspection, nondistended, normoactive bowel sounds present, Soft to palpation, non-tender, No hepatosplenomegaly present and no masses AUSCULTATION: Yes normoactive bowel sounds PALPATION: Yes Soft to palpation and Yes No hepatosplenomegaly present RECTAL EXAM: Yes deferred Extremity: NARRATIVE EXTREMITY EXAM: 2+B/L Pitting Pedal edema present Neuro: COMMON NORMALS: patient oriented x3 Data : 01/30/21 06:28 01/30/21 06:28 Micro: Microbiology 01/29/21 11:08 Blood Culture - Preliminary Blood SPECIMEN COLLECTED 01/29/21 11:18 Blood Culture - Preliminary Blood SPECIMEN COLLECTED A&P Assessment and plan (1) Pneumonia: Continue Ceftriaxone 1 gm q24 h Daily Status: Acute (2) ARTURO (acute kidney injury): Likely prerenal 2/2 to overdiuresis. R/O HRS Baseline SCR : 1.1 Admission SCR : 2.8 Continue I.V Hydration Monitor BMP Status: Acute (3) Digoxin toxicity: Received Digoxin immune romaine : 40 mg I.V * 1 dose in ER Monitor serum dig level as well as signs of dig toxicity. Status: Acute (4) Generalized weakness: Status: Acute (5) Cirrhosis: Status: Acute Qualifiers: Ascites presence: with ascites Hepatic cirrhosis type: alcoholic cirrhosis Qualified Code(s): K70.31 - Alcoholic cirrhosis of liver with ascites (6) Elevated bilirubin: Status: Acute (7) Pleural effusion: Status: Inactive (8) Hypothyroidism: Status: Chronic Qualifiers: Hypothyroidism type: acquired Qualified Code(s): E03.9 - Hypothyroidism, unspecified (9) Physical deconditioning: Status: Acute (10) COPD (chronic obstructive pulmonary disease): Status: Acute (11) Gout: Status: Acute (12) Alcohol abuse: Status: Acute (13) Anemia: Status: Acute Qualifiers: Anemia type: unspecified type Qualified Code(s): D64.9 - Anemia, unspecified (14) Systolic heart failure: Status: Acute Additional A&P Information Code Status :Full Code DVT PPX: Heparin Disposition :Home Attestations Medical Necessity Statement*: Patient needs to be in hospital for the management of PNA,ARTURO,poor oral intake,dehydration, weakness. Anticipated LOS greater then 2 midnights. Coding Level of Care Code Acute Corrugator Operator for [facility] Fwd Exam Detailed Diagnoses Pneumonia J18.9 ARTURO (acute kidney injury) N17.9 Digoxin toxicity T46.0X1A Generalized weakness R53.1 Cirrhosis K70.31 Ascites presence: with ascites Hepatic cirrhosis type: alcoholic cirrhosis Elevated bilirubin R17 Pleural effusion J90 Hypothyroidism E03.9 Hypothyroidism type: acquired Physical deconditioning R53.81 COPD (chronic obstructive pulmonary disease) J44.9 Gout M10.9 Alcohol abuse F10.10 Anemia D64.9 Anemia type: unspecified type Systolic heart failure I50.20
[2021-01-29] MEDS: heparin 5,000 unit/mL INJ 1 mL 5000 UNIT SUBCUT (16:04)
[2021-01-29] MEDS: cefTRIAXone 1,000 MG in sodium chloride 0.9% (plus) 50 ML 100 MG IV (16:04)
[2021-01-29] MEDS: sodium chloride 0.9% 1,000 ML 125 ML IV (16:04)
[2021-01-29 16:44] LABS: Troponin 5 2HR 64.31 ng/L (0-15)
[2021-01-29 16:47] LABS: Troponin 5 2HR Delta 3.31 ABS# (0-10)
--- NOTE | 2021-01-29 18:02 | ECG_ITS ---
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 Measurements Intervals Drury Rate: 67 P: 75 TN: 106 QRS: 154 QRSD: 137 T: 37 QT: 431 QTc: 458 Interpretive Statements SINUS RHYTHM WITH SHORT TN INTERVAL INTRAVENTRICULAR CONDUCTION DELAY [130+ ms QRS DURATION] LATERAL MYOCARDIAL INFARCTION [40+ ms Q WAVE AND/OR ST/T ABNORMALITY IN I/aVL/V5/V6], OF INDETERMINATE AGE Compared to ECG 01/29/2021 13:42:03 Short TN interval now present Ventricular premature complex(es) no longer present Myocardial infarct finding still present Electronically Signed On 01-29-2021 19:01:00 ACCOUNTING INTERN by Rod Cheney M.D. [id number]
[2021-01-29 19:38] LABS: Troponin 5 6HR 64.34 ng/L (0-15); Troponin 5 6HR Delta 3.34 ng/L (0-12)
[2021-01-29] MEDS: atorvastatin 40 mg Tablet 80 MG PO (21:19)
[2021-01-29] MEDS: levothyroxine 100 mcg Tablet PO (21:19)
[2021-01-29] MEDS: allopurinol 100 mg Tablet PO (21:19)
[2021-01-30] VITALS (18 sets, daily range): BP systolic 79–113; BP diastolic 53–68; PULSE 70–81; RESP 18–36; TEMP 35.2–37.1; O2SAT 89–93
[2021-01-30] MEDS: heparin 5,000 unit/mL INJ 1 mL 5000 UNIT SUBCUT ×2 (02:27→14:28)
[2021-01-30] MEDS: sodium chloride 0.9% 1,000 ML 125 ML IV ×2 (03:50→12:50)
[2021-01-30 06:49] LABS: Basophils % 0.5 %; Eosinophils # 0.2 10^3/uL (0.0-0.8); Eosinophils % 2.8 %; Hematocrit 39.2 % (42.0-52.0); Hemoglobin 12.9 g/dL (11.7-16.6); Lymphocytes # 0.8 10^3/uL (0.8-4.8); Lymphocytes % 10.4 %; Mean Corpuscular HGB Conc 32.9 g/dL (30.0-36.0); Mean Corpuscular Hemoglobin 23.7 pg (28.0-34.0); Mean Corpuscular Volume 72.1 fL (80-94); Monocytes # 0.4 10^3/uL (0.2-0.9); Monocytes % 4.5 %; Neutrophils # 6.38 10^3/uL (1.8-7.7); Neutrophils % 81.3 %; Nucleated Red Blood Cells % 0 %; Platelet Count 159 10^3/cmm (130-400); Red Blood Count 5.44 10^6/uL (4.1-5.3); Red Cell Distribution Width 21.9 % (12.1-15.1); White Blood Count 7.9 10^3/uL (4.0-10.0)
[2021-01-30 07:12] LABS: NT Pro B Type Natriuretic Pept 22312 pg/mL (0-125); Procalcitonin 0.78 ng/mL (0-0.5); Thyroid Stimulating Hormone 2.14 uIU/mL (0.27-4.20)
[2021-01-30 07:25] LABS: Alanine Aminotransferase 29 U/L (0-41); Albumin Level 2.1 g/dL (3.5-5.2); Alkaline Phosphatase 349 IU/L (40-130); Aspartate Amino Transferase 48 U/L (0-40); Blood Urea Nitrogen 27 mg/dL (8-23); Carbon Dioxide 19 mmol/L (22-29); Chloride 103 mmol/L (98-107); Globulin 3.2 g/dL (1.3-4.6); Glomerular Filtration Rate 24.1 mL/min (90-130); Magnesium 2.3 mg/dL (1.7-2.3); Osmolality Calculated 281 mOsm/kg (285-295); Sodium 135 mmol/L (136-145); Total Bilirubin 6.1 mg/dL (0.15-1.2); Total Protein 5.3 g/dL (6.6-8.7)
[2021-01-30 07:40] LABS: Digoxin 2.1 ng/mL (0.6-1.2); Glucose 30 mg/dL (65-115)
--- NOTE | 2021-01-30 08:07 | PC.NURSE ---
TC to Dr. Pressley to notify of critical glucose of 31. PEr Dr. Pressley, dc NPO order and give patient juice and breakfast. Repeat order back to provider. ORder changed in [employer].
--- NOTE | 2021-01-30 08:09 | PC.NURSE ---
Notified Dr. Pressley via [employer] messaging of critical digoxin level of 2.1.
--- NOTE | 2021-01-30 08:10 | PC.NURSE ---
Dr. Pressley acknowledged critical digoxin level.
[2021-01-30 08:46] LABS: Glucose Point of Care 63 mg/dL (70-110)
[2021-01-30] MEDS: potassium chloride ER 20 mEq Tablet PO (09:29)
[2021-01-30] MEDS: pantoprazole DR 40 mg Tablet PO (09:30)
[2021-01-30] MEDS: fluticasone nasal spray 16gm Btl 1 SPRAY INTRANASAL (09:34)
--- NOTE | 2021-01-30 10:56 | CTR_ITS ---
PROCEDURE INFORMATION: Exam: CT Chest Without Contrast; Diagnostic Exam date and time: 01/30/2021 12:00 PM Age: 60 years old Clinical indication: Other: Ascities; Shortness of breath; Additional info: Pna and ascites TECHNIQUE: Imaging protocol: Diagnostic computed tomography of the chest without contrast. Radiation optimization: All CT scans at this facility use at least one of these dose optimization techniques: automated exposure control; mA and/or kV adjustment per patient size (includes targeted exams where dose is matched to clinical indication); or iterative reconstruction. COMPARISON: CT abdomen pelvis w con* [id number] 04/23/2019 5:09 PM RADIATION DOSE METRICS: Total DLP (mGy-cm): 1266.73 FINDINGS: Lungs: Bilateral pulmonary ground-glass opacities. Pleural spaces: There are bilateral pleural effusions with underlying compressive atelectasis or infiltrate. Heart: Multivessel atherosclerotic disease which involves the coronary arteries. Cardiomegaly. Aorta: Unremarkable. No aortic aneurysm. Lymph nodes: Unremarkable. No enlarged lymph nodes. Bones/joints: Multiple old left rib fracture sites. There is nonunion of an old fracture through the posterior left 7th rib. Soft tissues: There is soft tissue anasarca. IMPRESSION: 1. There are bilateral pleural effusions with underlying compressive atelectasis or infiltrate. In combination with cardiomegaly, findings are consistent with congestive heart failure. 2. Bilateral pulmonary ground-glass opacities likely represent pulmonary edema in this patient. Pneumonia cannot be excluded. PROCEDURE INFORMATION: Exam: CT Abdomen And Pelvis Without Contrast Exam date and time: 01/30/2021 12:00 PM Age: 60 years old Clinical indication: Other: Ascities; Shortness of breath; Additional info: Pna and ascites TECHNIQUE: Imaging protocol: Computed tomography of the abdomen and pelvis without contrast. Radiation optimization: All CT scans at this facility use at least one of these dose optimization techniques: automated exposure control; mA and/or kV adjustment per patient size (includes targeted exams where dose is matched to clinical indication); or iterative reconstruction. COMPARISON: CT abdomen pelvis w con* [id number] 04/23/2019 5:09 PM RADIATION DOSE METRICS: Total DLP (mGy-cm): 1266.73 FINDINGS: Lungs: Please see the CT scan of the thorax for description of the lung bases. Liver: Normal. No mass. Gallbladder and bile ducts: Increased density in the gallbladder is nonspecific. No discrete stones are seen. Pancreas: Normal. No ductal dilation. Spleen: Normal. No splenomegaly. Adrenal glands: Normal. No mass. Kidneys and ureters: Normal. No hydronephrosis. Stomach and bowel: See Intraperitoneal space finding. Appendix: No evidence of appendicitis. Intraperitoneal space: There is a large amount of intraperitoneal ascites. Bowel loops are somewhat obscured by adjacent ascites. There are multiple colonic diverticula.There are air-fluid levels in the distal colon suggesting mild nonspecific colitis versus other diarrheal illness. There is mucosal thickening of the distal rectosigmoid colon. Vasculature: There is an IVC filter in place. Lymph nodes: Unremarkable. No enlarged lymph nodes. Urinary bladder: Unremarkable as visualized. Reproductive: Unremarkable as visualized. Bones/joints: There degenerative changes in the spine. Lumbar levoscoliosis. There are lower lumbar disc bulges. There are moderate to severe degenerative changes across the pubic symphysis. Chronic left inferior pubic ramus fractures. There is incomplete osseous bridging across the fracture sites. Soft tissues: There is soft tissue anasarca. CT/CT chest abd pel wo con IMPRESSION: 1. There is a large amount of ascites and soft tissue anasarca, likely cardiac in origin in this patient with findings consistent with congestive heart failure. 2. There are air-fluid levels in the distal colon suggesting mild nonspecific colitis versus other diarrheal illness. 3. There is mucosal thickening of the distal rectosigmoid colon. Differential includes nonspecific colitis. Follow-up to exclude neoplasm as clinically warranted. COMMENTS: For patients with an IVC filter, recommend assessment for a management plan for the patient???s IVC filter. If there is no established management plan, recommend referral to an interventional clinician on a nonemergent basis for evaluation. Radiation Dose CTDIVOL = (mGy): DLP = 1266.73~1266.73 (mGy-cm)
--- NOTE | 2021-01-30 10:58 | USCV_ITS ---
Omer Danielle Age: 60 Gender: M : 1960 Exam Date: 01/30/2021 13:16 Ordering Phys: Chapincito Pressley MD Technologist: Suze Fregoso Exam Location: [facility] Indication: SOB BP: 92 / 59 HR: 123 Rhythm: Sinus Technical Quality: Adequate MEASUREMENTS (Male / Female) Normal Values 2D ECHO LV Diastolic Diameter PLAX 5.4 cm 4.2 - 5.9 / 3.9 - 5.3 cm LV Systolic Diameter PLAX 4.4 cm LV Chamber Size 4.1 cm IVS Diastolic Thickness 1.0 cm 0.6 - 1.0 / 0.6 - 0.9 cm IVS Systolic Thickness 1.3 cm LVPW Diastolic Thickness 1.1 cm 0.6 - 1.0 / 0.6 - 0.9 cm LVPW Systolic Thickness 1.1 cm RV Chamber Size 4.8 cm LVOT Diameter 1.9 cm LV Ejection Fraction 2D Teich 36.0 % LV Ejection Fraction MOD 2C 32.3 % LV Ejection Fraction 2C AL 31.3 % LA Diameter 3.7 cm LA Width 3.3 cm LA Height 4.8 cm RA Width 4.5 cm RA Height 6.4 cm Aorta at Sinotubular Diameter 2.6 cm M-MODE LV Diastolic Diameter MM 5.1 cm 4.2 - 5.9 / 3.9 - 5.3 cm LV Systolic Diameter MM 4.5 cm LV Ejection Fraction MM Teich 24.0 % IVS Diastolic Thickness MM 1.3 cm 0.6 - 1.0 / 0.6 - 0.9 cm IVS Systolic Thickness MM 1.6 cm LVPW Diastolic Thickness MM 1.2 cm 0.6 - 1.0 / 0.6 - 0.9 cm LVPW Systolic Thickness MM 1.1 cm RV Diastolic Diameter MM 4.6 cm Aortic Annulus Diameter 3.5 cm LA Ao Ratio MM 1.1 MV E Point Septal Separation 1.2 cm DOPPLER AV Peak Velocity 79.0 cm/s LVOT Peak Velocity 58.0 cm/s AV Area Cont Eq vti 2.0 cm squared AV Area Cont Eq pk 2.2 cm squared MV Area PHT 4.5 cm squared Mitral E to A Ratio 1.6 MV E' Velocity 29.0 cm/s Mitral E to MV E' Ratio 9.1 Mitral E to LV E' Lateral Ratio 7.5 Mitral E to LV E' Septal Ratio 11.8 TR Peak Velocity 257.7 cm/s TR Peak Gradient 26.6 mmHg TR Mean Velocity 245.1 cm/s TR Mean Gradient 25.8 mmHg TR Velocity Time Integral 114.4 cm TV Peak E Velocity 60.0 cm/s Right Atrial Pressure 8.0 mmHg Pulmonary Artery Systolic Pressu 34.6 mmHg PV Peak Velocity 47.0 cm/s RV Acceleration Time 0.1 s RV Ejection Time 0.2 s RV AcT/ET 0.4 FINDINGS Left Ventricle Severely decreased left ventricular systolic function. Global left ventricular hypokinesis. Left ventricular ejection fraction is estimated at 25 %. There appeared to be septal bounce.flattened septum in diastole consistent with right ventricle volume overload. Grade II/IV diastolic dysfunction, moderately elevated filling pressures. Right Ventricle Severely increased right ventricular size. Severely decreased right ventricular systolic function. Moderate pulmonary hypertension, RVSP 34.6 mmHg. Right Atrium Severely increased right atrial size. Left Atrium The left atrium is normal in size. Mitral Valve Moderately thickened mitral valve. No mitral valve stenosis. Trace mitral valve regurgitation. Aortic Valve Mild aortic valve calcification. No aortic valve stenosis. No aortic valve regurgitation. Tricuspid Valve Severe tricuspid valve regurgitation. Pulmonic Valve Mild pulmonary valve regurgitation. Pericardium Normal pericardium without effusion. Pleural effusion. Aorta Normal ascending aorta dimension. CONCLUSIONS 1-Severely decreased left ventricular systolic function. Global left ventricular hypokinesis. Left ventricular ejection fraction is estimated at 25 %. There appeared to be septal bounce.flattened septum in diastole consistent with right ventricle volume overload. Grade II/IV diastolic dysfunction, moderately elevated filling pressures. 2-Severely increased right ventricular size. Severely decreased right ventricular systolic function. Moderate pulmonary hypertension, RVSP 34.6 mmHg. 3-Severely increased right atrial size. 4-Severe tricuspid valve regurgitation. 5-Mild pulmonary valve regurgitation. 6-Normal pericardium without effusion. Pleural effusion. 7-Right atrial pressure is around 20 mm of mercury. 8-When compared to the prior echocardiogram dated October 03, 2018 left ventricular ejection fraction has depressed from moderately reduced 40% to severely reduced 25%, right ventricle remains severely enlarged with severely depressed ejection fraction. Tricuspid valve regurgitation remains in severe category. There appeared to be pleural effusion now. Jessica Espinoza MD (Electronically Signed) Final Date: 30 January 2021 16:25 S
[2021-01-30 11:16] LABS: Glucose Point of Care 85 mg/dL (70-110)
--- NOTE | 2021-01-30 13:34 | P.PN_ITS ---
Subjective Subjective: Interval history: Patient was seen and examined this morning,he was having confusion and was definitely not at his baseline mentation. He was telling that his will pick him up.He was also tachypenic. He has remained afebrile.His vitals and labs have been reviewed. Medications: Reviewed: Yes Vitals/I&O/Wt Last Vital Signs Temp 98.0 F 01/30/21 12:00 Pulse 78 01/30/21 12:20 Resp 18 01/30/21 12:00 BP 113/68 01/30/21 12:00 Pulse Ox 92 01/30/21 12:20 01/29/21 01/30/21 01/30/21 22:59 06:59 14:59 Intake Total 1000 / 2204 1000 / 3204 1236 / 1236 Balance 1000 / 2204 1000 / 3204 1236 / 1236 Weight last 48 hrs Weight 72.257 kg Weight 72.575 kg Physical Exam Narrative: EXAM NARRATIVE: Awake HENMT: COMMON NORMALS: normocephalic and atraumatic HEAD & SCALP: normocephalic and atraumatic Chest: OTHER: B/L Wheezing Present in both lungs breaux. Resp: EFFORT & INSPECTION: Yes symmetric chest movement Cardio: COMMON NORMALS: regular rate, regular rhythm, S1 normal heart sound present, S2 normal heart sound present, No gallops present (Cardio), No murmurs present (Cardio), No rub (Cardio) and Peripheral pulses 2+ throughout RATE: regular rate RHYTHM: regular rhythm HEART SOUNDS: S1 normal heart sound present and S2 normal heart sound present PERIPHERAL PULSES: Peripheral pulses 2+ throughout GI: COMMON NORMALS: Normal to inspection, nondistended, normoactive bowel sounds present, Soft to palpation, non-tender, No hepatosplenomegaly present and no masses AUSCULTATION: Yes normoactive bowel sounds PALPATION: Yes Soft to palpation and Yes No hepatosplenomegaly present RECTAL EXAM: Yes deferred Extremity: NARRATIVE EXTREMITY EXAM: 2+B/L Pitting Pedal edema present Urinary Catheter Management^: Tsai: Cath Placed During This Visit: yes Reason for Continuing Indwelling Catheter: Accurate Measurement of Urinary Output in Critically Ill Patients Urinary Catheter Date of Insertion: 01/29/21 Urinary Catheter Time of Insertion: 14:30 Data : 01/30/21 06:28 01/30/21 06:28 Micro: Microbiology 01/29/21 11:18 Blood Culture - Preliminary Blood NEGATIVE TO DATE 01/29/21 11:08 Blood Culture - Preliminary Blood NEGATIVE TO DATE A&P Assessment and plan (1) Encephalopathy: Metabolic encephalopathy v/s Hepatic encephalopathy: Currently Ammonia : Is Normal Continue Lactulose 30 mg TID Continue Cef 1 gm q24 h daily Albumin 25 mg TID Correct electrolytes Will consider Rifaximin. Status: Acute (2) Pneumonia: Continue Ceftriaxone 1 gm q24 h Daily Status: Acute (3) Systolic heart failure: HFrEF: 2D Echo : Severely decreased left ventricular systolic function. Global left ventricular hypokinesis. Left ventricular ejection fraction is estimated at 25 %. There appeared to be septal bounce.flattened septum in diastole consistent with right ventricle volume overload. Grade II/IV diastolic dysfunction,moderately elevated filling pressures.Severely increased right ventricular size. Severely decreased right ventricular systolic function. Moderate pulmonary. I/O Charting Lasix 40 mg I.V Daily Daily Weight. Status: Acute (4) ARTURO (acute kidney injury): Likely CRS : R/O HRS Baseline SCR : 1.1 Admission SCR : 2.8 Monitor BMP Status: Acute (5) Digoxin toxicity: Received Digoxin immune romaine : 40 mg I.V * 1 dose in ER Monitor serum dig level as well as signs of dig toxicity. Status: Acute (6) Ascites: C.T Abdomen and pelvis done : There is a large amount of ascites and soft tissue anasarca, likely cardiac in origin in this patient with findings consistent with congestive heart failure. Currently do not have abdominal pain. Will Do paracentesis to r/o SBP as well as cell cytology for possible malignancy work up ( HCC ) Currently on Cef 1 gm q24 h daily Status: Acute (7) Generalized weakness: Status: Acute (8) Cirrhosis: Decompensated Alchoilic Liver Cirrhosis: MELD :Na : 30 : (52.6)% Estimated 3 Months Mortality. Status: Acute Qualifiers: Hepatic cirrhosis type: alcoholic cirrhosis Ascites presence: with ascites Qualified Code(s): K70.31 - Alcoholic cirrhosis of liver with ascites (9) Elevated bilirubin: Status: Acute (10) Pleural effusion: Status: Inactive (11) Hypothyroidism: Status: Chronic Qualifiers: Hypothyroidism type: acquired Qualified Code(s): E03.9 - Hypothyroidism, unspecified (12) Physical deconditioning: Status: Acute (13) COPD (chronic obstructive pulmonary disease): Status: Acute (14) Gout: Status: Acute (15) Alcohol abuse: Status: Acute (16) Anemia: Status: Acute Qualifiers: Anemia type: unspecified type Qualified Code(s): D64.9 - Anemia, unspecified Additional A&P Information Code Status :Full Code DVT PPX: Heparin Disposition :Home Attestations Medical Necessity Statement*: Patient needs to be in hospital for the management of encephalopathy/ARTURO/HF/Decompensated liver cirhhosis/PNA Coding Level of Care Code Acute Director Of Admissions for [facility] Fwd Diagnoses Encephalopathy G93.40 Pneumonia J18.9 Systolic heart failure I50.20 ARTURO (acute kidney injury) N17.9 Digoxin toxicity T46.0X1A Ascites R18.8 Generalized weakness R53.1 Cirrhosis K70.31 Hepatic cirrhosis type: alcoholic cirrhosis Ascites presence: with ascites Elevated bilirubin R17 Pleural effusion J90 Hypothyroidism E03.9 Hypothyroidism type: acquired Physical deconditioning R53.81 COPD (chronic obstructive pulmonary disease) J44.9 Gout M10.9 Alcohol abuse F10.10 Anemia D64.9 Anemia type: unspecified type
[2021-01-30] MEDS: cefTRIAXone 1,000 MG in sodium chloride 0.9% (plus) 50 ML 100 MG IV (14:27)
[2021-01-30] MEDS: lactulose oral liq 20 gm/30 mL UDC 30 GM PO ×2 (14:27→21:36)
[2021-01-30] MEDS: FUROsemide 10 mg/mL SDV 4mL 40 MG IVP (17:48)
[2021-01-30] MEDS: atorvastatin 40 mg Tablet 80 MG PO (21:37)
[2021-01-30] MEDS: allopurinol 100 mg Tablet PO (21:37)
[2021-01-30] MEDS: levothyroxine 100 mcg Tablet PO (21:37)
[2021-01-30 22:21] LABS: Glucose Point of Care 46 mg/dL (70-110)
--- NOTE | 2021-01-30 22:27 | PC.NURSE ---
Physician Notification Dr. Reina notified of decrease in temp. Core temp taken rectally 95.3. Pt placed on rewarming blanket. notified of glucose of 46 and consistent hypotension with MAPs 63-65.. Telephone orders received for amp of d50 and to feed patient. Physician was informed of NPO status due to ams. Telephone orders received for Midodrine 5mg PO q8hrs.
[2021-01-30] MEDS: dextrose 50% syringe 50 mL IVP ×2 (22:32→22:37)
[2021-01-30] MEDS: midodrine 5 mg TABLET PO (22:37)
[2021-01-30 22:53] LABS: Ammonia 39 umol/L (16-60)
[2021-01-30] MEDS: linezolid premix 600 MG/300 ML PREMIX 300 MG IV (23:18)
[2021-01-31] VITALS (82 sets, daily range): BP systolic 71–98; BP diastolic 44–60; PULSE 73–82; RESP 18–42; TEMP 35.3–36.9; O2SAT 90–96
[2021-01-31] MEDS: lactulose oral liq 20 gm/30 mL UDC 30 GM PO (00:52)
[2021-01-31] MEDS: piperacillin-tazobactam 3.375 GM in sodium chloride 0.9% (plus) 50 ML IV ×3 (00:53→18:02)
--- NOTE | 2021-01-31 01:03 | PC.NURSE ---
Respiratory Increase effort in breathing and respiratory rate. RR 30-40, pt wheezing. Saturation 92% on 3L. Pt has activity intolerance with bed changes and repositioning. Pt still oliguric even after admin of albumin and lasix. Dr. Reina notified and received orders for bipap.
[2021-01-31 02:25] LABS: Glucose Point of Care 107 mg/dL (70-110)
[2021-01-31 02:25] LABS: Glucose Point of Care 111 mg/dL (70-110)
[2021-01-31] MEDS: heparin 5,000 unit/mL INJ 1 mL 5000 UNIT SUBCUT ×2 (03:50→14:30)
[2021-01-31 03:54] LABS: Basophils % 0.4 %; Eosinophils # 0.3 10^3/uL (0.0-0.8); Eosinophils % 2.7 %; Hematocrit 35.7 % (42.0-52.0); Hemoglobin 12.4 g/dL (11.7-16.6); Lymphocytes % 10.3 %; Mean Corpuscular HGB Conc 34.7 g/dL (30.0-36.0); Mean Corpuscular Hemoglobin 24.4 pg (28.0-34.0); Mean Corpuscular Volume 70.3 fL (80-94); Monocytes # 0.4 10^3/uL (0.2-0.9); Monocytes % 3.9 %; Neutrophils # 7.56 10^3/uL (1.8-7.7); Neutrophils % 82.3 %; Nucleated Red Blood Cells % 0 %; Platelet Count 168 10^3/cmm (130-400); Red Blood Count 5.08 10^6/uL (4.1-5.3); Red Cell Distribution Width 21.8 % (12.1-15.1); White Blood Count 9.2 10^3/uL (4.0-10.0)
[2021-01-31 04:29] LABS: Alanine Aminotransferase 28 U/L (0-41); Albumin Level 2.6 g/dL (3.5-5.2); Alkaline Phosphatase 334 IU/L (40-130); Anion Gap 18.3 (5-19); Aspartate Amino Transferase 66 U/L (0-40); Blood Urea Nitrogen 28 mg/dL (8-23); Calcium 7.1 mg/dL (8.5-10.5); Carbon Dioxide 18 mmol/L (22-29); Chloride 106 mmol/L (98-107); Globulin 2.8 g/dL (1.3-4.6); Glomerular Filtration Rate 19.1 mL/min (90-130); Glucose 61 mg/dL (65-115); Osmolality Calculated 291 mOsm/kg (285-295); Potassium 3.3 mmol/L (3.5-5.1); Sodium 139 mmol/L (136-145); Total Protein 5.4 g/dL (6.6-8.7)
[2021-01-31 04:33] LABS: Total Bilirubin 7.3 mg/dL (0.15-1.2)
[2021-01-31] MEDS: dextrose 50% syringe 50 mL IVP (05:34)
[2021-01-31 05:36] LABS: ABG PCO2 22.3 mmHg (35-45); ABG PH Result 7.52 (7.35-7.45); Arterial Blood Gas Hematocrit 39.6 % (42-52); Blood Gas Allen Test Pos; Blood Gas Operator Identificat JB; Blood Gas Sample Site Radial, left; Blood Gas Sample Type Arterial; HCO3 ABG 18.1 mmol/L (22-26); Oxygen Device BIPAP; PO2 ABG 76.2 mmHg (80.0-100.0)
[2021-01-31 06:01] LABS: Glucose Point of Care 56 mg/dL (70-110)
[2021-01-31] MEDS: FUROsemide 10 mg/mL SDV 4mL 40 MG IVP (08:01)
[2021-01-31 08:22] LABS: Glucose Point of Care 118 mg/dL (70-110)
[2021-01-31] MEDS: levalbuterol 0.63 mg/3 mL Neb INHALATION ×3 (08:49→20:04)
[2021-01-31] MEDS: albumin 12.5 GM/50 ML VIAL IV ×5 (09:06→22:24)
[2021-01-31] MEDS: DOBUTamine drip 500 MG/250 ML PREMIX 6.5 MG IV (09:10)
--- NOTE | 2021-01-31 10:40 | P.CONIM_ITS ---
Providers/Reason For Consult Consulting Physican/Specialty*: Nephrology Reason for Consult*: Renal Failure Attending Physician: Chapincito Pressley MD Primary Care Provider: SAURABH Lam History of Present Illness History of Present Illness Thank you for consultation, today I reviewed this unfortunate 60-year-old gentleman. He came in with severe weakness, confusion. He has an established history of end-stage liver disease. There is a report that he was not taking his laxatives as prescribed. He is currently unable to give any clinical history as he is too confused. He is currently on BiPAP at high flow. He is maintaining his oxygen saturation. Of note his hemodynamics are also very soft with systolic pressures between 80 and 90, MAP roughly 60 on a combination dobutamine, Levophed, albumin infusions. Despite high-dose Lasix, he has still not made any urine. Admission serum creatinine 2.8 which is now increasing to 3.3 mg/dL. Chemically he is reasonable with a potassium 3.3, bicarb of 18 and an anion gap of 18.3. He has severe volume overload with global significant gross anasarca. History is taken from nursing staff at bedside. Review of Systems General: Reports: ROS unobtainable due to mental status Meds/Allergies Home Medications and Allergies Home Medications Medication Instructions Recorded Confirmed Last Taken Type neomycin 3.5 mg-polymyxin 10,000 1 drp OPHTHALMIC (EYE) BID 7 Days 12/14/20 01/29/21 Unknown Rx unit-hydrocort 10 mg/mL eye #7.5 ml drop,susp melatonin 5 mg capsule 10 mg PO BEDTIME PRN 12/17/20 01/29/21 Unknown History multivit,Ca,min-iron 8 mg-folic 1 tab PO DAILY@12/17/20 01/29/21 01/28/21 History acid 200 mcg-lycopene 600 mcg tablet alprazolam 0.5 mg tablet 0.5 mg PO TID PRN 30 Days #90 tab 01/15/21 01/29/21 01/28/21 Rx fluticasone propionate 50 1 spray INTRANASAL DAILY 30 Days 01/15/21 01/29/21 Unknown Rx mcg/actuation nasal #16 g spray,suspension tramadol 50 mg tablet 50 mg PO Q8H PRN 5 Days #15 tab 01/22/21 01/29/21 Unknown Rx Coreg 6.25 mg PO BID@01/29/21 01/29/21 01/28/21 History Lexapro 20 mg PO DAILY@209901/29/21 01/29/21 01/28/21 History Miralax 17 g PO DAILY PRN 01/29/21 01/29/21 Unknown History allopurinol 100 mg PO DAILY@209901/29/21 01/29/21 01/28/21 History atorvastatin 80 mg PO DAILY@209901/29/21 01/29/21 01/28/21 History clopidogrel 75 mg PO DAILY@01/29/21 01/29/21 01/28/21 History digoxin 125 mcg PO DAILY@01/29/21 01/29/21 01/28/21 History furosemide 40 mg PO DAILY@01/29/21 01/29/21 01/28/21 History levothyroxine 100 mcg PO DAILY@209901/29/21 01/29/21 01/28/21 History potassium chloride 20 meq PO DAILY@01/29/21 01/29/21 01/28/21 History Allergies Allergy/AdvReac Type Severity Reaction Status Date / Time albuterol Allergy hyperactive Verified 01/22/21 11:10 Current Medications Current Medications Generic Name Dose Route Start Last Admin Trade Name Freq PRN Reason Stop Dose Admin Albuterol/Ipratropium 3 ml 01/30/21 12:00 01/31/21 08:29 Ipratropium-Albuterol 3 Ml Neb INHALATION Not Given Q4H.RESPIRATORY GLADYS Allopurinol 100 mg 01/29/21 21:00 01/30/21 21:37 Allopurinol 100 Mg Tablet PO 100 mg DAILY@2099 GLADYS Administration Atorvastatin Calcium 80 mg 01/29/21 21:00 01/30/21 21:37 Atorvastatin 40 Mg Tablet PO 80 mg DAILY@2100 GLADYS Administration Fluticasone Propionate 1 spray 01/30/21 09:00 01/31/21 09:17 Fluticasone Nasal [place] 16gm Btl INTRANASAL Not Given DAILY GLADYS Heparin Sodium (Beef Lung) 5,000 unit 01/29/21 15:15 01/31/21 03:50 Heparin 5,000 Unit/Ml Inj 1 Ml SUBCUT 5,000 unit Q12H GLADYS Administration Norepinephrine Bitartrate 4 mg 254 mls @ 0 mls/hr 01/30/21 22:45 03/07/21 07:05 / Dextrose IV 12 mcg/min .Q0M GLADYS 45.7 mls/hr Titration Protocol Per Protocol Piperacillin Sod/Tazobactam 50 mls @ 12.5 mls/hr 01/30/21 22:45 01/31/21 09:27 Sod 3.375 gm/ Sodium Chloride IV 50 mls/hr Q8H GLADYS Administration Protocol Linezolid 600 mg in 300 mls @ 300 mls/hr 01/30/21 23:00 01/31/21 00:20 Zyvox Premix IV Infused Q12H GLADYS Infusion Protocol Dobutamine HCl/Dextrose 500 mg in 250 mls @ 0 mls/hr 01/31/21 08:45 01/31/21 09:10 Dobutamine Drip IV 3 mcg/kg/min .Q0M GLADYS 6.5 mls/hr Administration Protocol Per Protocol Albumin Human 12.5 gm in 50 mls @ 18 mls/hr 01/31/21 09:00 01/31/21 09:06 Albumin IV 02/01/21 08:59 18 mls/hr CONT GLADYS Administration Levalbuterol HCl 0.63 mg 01/31/21 09:00 01/31/21 08:49 Levalbuterol 0.63 Mg/3 Ml Neb INHALATION 0.63 mg Q6H.RESPIRATORY GLADYS Administration Levothyroxine Sodium 100 mcg 01/29/21 21:00 01/30/21 21:37 Levothyroxine 100 Mcg Tablet PO 100 mcg DAILY@2100 GLADYS Administration Midodrine 5 mg 01/30/21 23:00 01/31/21 09:17 Midodrine 5 Mg Tablet PO Not Given TID GLADYS Pantoprazole Sodium 40 mg 01/30/21 09:00 01/31/21 09:[address] 40 Mg Tablet PO Not Given DAILY GLADYS PFSH Acute PFSH: Medical History (Updated 01/30/21 @ 17:03 by Chapincito Pressley MD) Abdominal pain Anemia Anxiety Anxiety and depression Bacterial conjunctivitis Cardiomegaly Cirrhosis COPD (chronic obstructive pulmonary disease) Coronary artery disease Dental infection Elevated alkaline phosphatase level Essential hypertension Fatigue Gout History of smoking 25-50 pack [address] History of ST elevation myocardial infarction (STEMI) Hypothyroidism Impacted cerumen of right ear Ischemic cardiomyopathy Lower respiratory infection Medication management Mixed hyperlipidemia Nasal congestion Nausea and vomiting Pain, dental Pleural effusion Pleural effusion Pulmonary hypertension Right wrist injury RUQ pain Shortness of breath Symptoms of urinary tract infection Vasculogenic erectile dysfunction Vitamin D deficiency Surgical History S/P CABG x 4 Status post coronary artery stent placement Status post insertion of inferior vena caval filter Social History Smoking and tobacco status: never smoked Alcohol intake: never Vitals/I&O/Wt Last Vital Signs Temp 98.4 F 01/31/21 05:37 Pulse 74 01/31/21 10:06 Resp 34 H 01/31/21 09:15 BP 85/47 01/31/21 09:15 Pulse Ox 92 01/31/21 10:06 01/30/21 01/31/21 01/31/21 22:59 06:59 14:59 Intake Total 616.667 / 1952.667 546.236 / 2498.903 58.42 / 58.42 Output Total 51 / 51 Balance 616.667 / 1952.667 495.236 / 2447.903 58.42 / 58.42 Weight last 48 hrs Weight 71.804 kg Weight 72.257 kg Physical Exam Const: GENERAL APPEARANCE: diaphoretic and Edematous Eye: SCLERA: scleral abnormal Neck/C-Spine: COMMON NORMALS: no JVD Resp: AUSCULTATION: crackles, rales, rhonchi and wheezes Cardio: COMMON NORMALS: no JVD, regular rhythm, S1 normal heart sound present and S2 normal heart sound present RHYTHM: regular rhythm HEART SOUNDS: S1 normal heart sound present and S2 normal heart sound present Extremity: GENERAL: Yes edema Urinary Catheter Management^: Tsai: Cath Placed During This Visit: yes Reason for Continuing Indwelling Catheter: Accurate Measurement of Urinary Output in Critically Ill Patients Urinary Catheter Date of Insertion: 01/29/21 Urinary Catheter Time of Insertion: 14:30 Data Micro: Micro: Microbiology 01/29/21 11:18 Blood Culture - Pr eliminary Blood NEGATIVE TO NAA E 01/29/21 11:08 Blood Culture - Pr eliminary Blood NEGATIVE TO NAA E A&P Additional A&P Information 1. Renal failure The picture is consistent with hepatorenal syndrome. In the context of liver failure from alcohol use, this is a dire situation. If he is a liver transplant candidate, he will need to be transferred for CRRT, however, if he is not a liver transplant candidate, providing life supportive measures including hemodialysis is futile. With this in mind futile treatment should not be offered. I will add octreotide, 200 mg, 3 times daily, subcutaneously as well as a Lasix infusion. CT A/P demonstrated no evidence of obstrutive pathology If urine is made, will send for urine chemistry. Dose medications for GFR less than 15 Avoid usual nephrotoxic agents. 2. End-stage liver disease. On admission, emergency room team did discuss with pharmacy who did not accept the patient, we may need to readdress this with the [facility] team. If he is not a transplant candidate, it is unlikely a transfer to their facility would change his clinical course. At that time hospice/palliation should be explored. 3. Chemistry. Mild aberration, potassium being replaced. Continue to monitor chemistry. 4. Respiratory distress. Being maintained on BiPAP. Management per ICU team. Would recommend DNI/DNR considering the above discussion. 5. Encephalopathy. Consistent with hepatic encephalopathy, management per primary team. Thank you for consultation, it is a pleasure to follow these cases with you Exam and interview performed with aid of bedside RN using telemedicine Time spent 20 min inc > 50% of time in face to face counseling Sixto Tineo MD [facility] [phone] Consult Attestations Medical Necessity Statement: Eval for renal failure Coding Level of Care Code Acute Emergency Room Physician for Lupe Wright
[2021-01-31] MEDS: FUROsemide 100 MG in sodium chloride 0.9% 40 ML 10 MG IV ×2 (11:12→21:13)
[2021-01-31] MEDS: octreotide 100 mcg/mL SDV 200 MCG SUBCUT ×2 (11:13→18:59)
[2021-01-31] MEDS: linezolid premix 600 MG/300 ML PREMIX 300 MG IV (12:38)
--- NOTE | 2021-01-31 13:10 | PM.PN ---
Subjective Subjective: Interval history: Patient condition continued to since yesterday. He became severely hypotensive overnight. He was started on levophed, Levophed requirement continued to increase throughout the night. Has failed to make any urine out overnight.He was also tachypneic last night. He was also hypothermic last night, requiring to be placed on warming blanket. Medications: Reviewed: Yes Vitals/I&O/Wt Last Vital Signs Temp 98.4 F 01/31/21 05:37 Pulse 73 01/31/21 11:57 Resp 34 H 01/31/21 09:15 BP 85/47 01/31/21 09:15 Pulse Ox 93 01/31/21 11:57 01/30/21 01/31/21 01/31/21 22:59 06:59 14:59 Intake Total 616.667 / 1952.667 546.236 / 2498.903 357.764 / 357.764 Output Total 51 / 51 Balance 616.667 / 1952.667 495.236 / 2447.903 357.764 / 357.764 Weight last 48 hrs Weight 71.804 kg Weight 72.257 kg Physical Exam Narrative: EXAM NARRATIVE: Awake HENMT: COMMON NORMALS: normocephalic and atraumatic HEAD & SCALP: normocephalic and atraumatic Chest: COMMONS NORMALS: normal inspection of the chest and normal palpation of entire chest wall CHEST: Yes Symmetrical chest wall rise OTHER: B/L Wheezing Present in both lungs breaux. Bilateral diffuse crackles present in both lungs Resp: COMMON NORMALS: normal respiratory effort and clear to auscultation bilaterally EFFORT & INSPECTION: Yes symmetric chest movement AUSCULTATION: clear to auscultation bilaterally Cardio: COMMON NORMALS: regular rate, regular rhythm, S1 normal heart sound present, S2 normal heart sound present, No gallops present (Cardio), No murmurs present (Cardio), No rub (Cardio) and Peripheral pulses 2+ throughout RATE: regular rate RHYTHM: regular rhythm HEART SOUNDS: S1 normal heart sound present and S2 normal heart sound present PERIPHERAL PULSES: Peripheral pulses 2+ throughout GI: RECTAL EXAM: Yes deferred OTHER: Distended abdomen, normoactive bowels, fluid thrill's Extremity: NARRATIVE EXTREMITY EXAM: 3+B/L Pitting Pedal edema present Urinary Catheter Management^: Tsai: Cath Placed During This Visit: yes Reason for Continuing Indwelling Catheter: Accurate Measurement of Urinary Output in Critically Ill Patients Urinary Catheter Date of Insertion: 01/29/21 Urinary Catheter Time of Insertion: 14:30 Data : 01/31/21 03:31 01/31/21 03:31 Micro: Microbiology 01/29/21 11:18 Blood Culture - Preliminary Blood NEGATIVE TO DATE 01/29/21 11:08 Blood Culture - Preliminary Blood NEGATIVE TO DATE A&P Assessment and plan (1) Renal failure: Renal failure secondary to hepatorenal syndrome, secondary to alcoholic liver cirrhosis. CT A/P demonstrated no evidence of obstrutive pathology Renal ultrasound:Unremarkable kidneys Currently on octreotide 200 mg 3 times daily SC Albumin 1.5 gm per KG body weight on day 1 as well as albumin 1 g/kg body weight daily. Lasix drip. Levophed drip Dobutamine drip Urine electrolytes Dose medications for GFR less than 15 Avoid usual nephrotoxic agents. Status: Acute (2) Encephalopathy: Hepatic encephalopathy: Patient was on lactulose 30 gm every 4h and had good 4-5 bowel movement last night. Continue Lactulose 30 mg TID Zyvox 600 mg IV every 12h (01/30--) Zosyn 3.375 gm IV every 8 hours day ( 01/30--) Initially on Cef 1 gm q24 h daily (01/29-01/30 ) Albumin 1.5 gm per KG body weight on day 1 as well as albumin 1 g/kg body weight daily. Correct electrolytes Will consider Rifaximin. Status: Acute (3) Pneumonia: Status: Acute (4) Systolic heart failure: HFrEF: Decompensated systolic heart failure 2D Echo : Severely decreased left ventricular systolic function. Global left ventricular hypokinesis. Left ventricular ejection fraction is estimated at 25 %. There appeared to be septal bounce.flattened septum in diastole consistent with right ventricle volume overload. Grade II/IV diastolic dysfunction,moderately elevated filling pressures.Severely increased right ventricular size. Severely decreased right ventricular systolic function. Moderate pulmonary. I/O Charting Daily weight Status: Acute (5) Digoxin toxicity: Received Digoxin immune romaine : 40 mg I.V * 1 dose in ER Monitor serum dig level as well as signs of dig toxicity. Status: Acute (6) Ascites: C.T Abdomen and pelvis done : There is a large amount of ascites and soft tissue anasarca, likely cardiac in origin in this patient with findings consistent with congestive heart failure. Currently do not have abdominal pain. Will Do paracentesis to r/o SBP as well as cell cytology for possible malignancy work up ( HCC ) Currently on Cef 1 gm q24 h daily Status: Acute (7) Generalized weakness: Status: Acute (8) End-stage liver disease: Status: Acute (9) Cirrhosis: Decompensated Alchoilic Liver Cirrhosis: MELD :Na : 30 : (52.6)% Estimated 3 Months Mortality. Status: Acute Qualifiers: Hepatic cirrhosis type: alcoholic cirrhosis Ascites presence: with ascites Qualified Code(s): K70.31 - Alcoholic cirrhosis of liver with ascites (10) Elevated bilirubin: Status: Acute (11) Pleural effusion: Status: Inactive (12) Hypothyroidism: Status: Chronic Qualifiers: Hypothyroidism type: acquired Qualified Code(s): E03.9 - Hypothyroidism, unspecified (13) Physical deconditioning: Status: Acute (14) COPD (chronic obstructive pulmonary disease): Status: Acute (15) Gout: Status: Acute (16) Alcohol abuse: Status: Acute (17) Anemia: Status: Acute Qualifiers: Anemia type: unspecified type Qualified Code(s): D64.9 - Anemia, unspecified Additional A&P Information Code Status :Full Code DVT PPX: Heparin Disposition :Home Attestations Medical Necessity Statement*: Patient needs to be in hospital for management of acute renal failure, hepatic encephalopathy. Critical Care Time: The high probability of a clinically significant, sudden or life threatening deterioration of the patient's [] system(s) required my full and direct attention, intervention and personal management. The critical care time is as shown. This time is in addition to time spent performing any reported procedures but includes the following: [x] Data and vital sign review and interpretation [x] Patient assessment, examination and intervention [x] Documentation [x] Medication orders and management Critical Care Time (min): 60 Procedures Central Line Placement^ Right Femoral: Time out performed: Yes Patient placed on monitor/pulse ox: Yes MD prep: mask, gown and gloves Central line prep: Chlorhexidine scrub Local anesthesia used: lidocaine 1% Amount of anesthesia used (ml): 10 Ultrasound used for placement: Yes Central line lumen inserted: triple Post procedure: sutured in place, good blood return, all ports aspirated, flushed, capped and sterile dressing applied Patient tolerated procedure: well Complications: none Coding Level of Care Code Acute Pediatric Surgeon for Chg Fwd Diagnoses Renal failure N19 Encephalopathy G93.40 Pneumonia J18.9 Systolic heart failure I50.20 Digoxin toxicity T46.0X1A Ascites R18.8 Generalized weakness R53.1 End-stage liver disease K72.90 Cirrhosis K70.31 Hepatic cirrhosis type: alcoholic cirrhosis Ascites presence: with ascites Elevated bilirubin R17 Pleural effusion J90 Hypothyroidism E03.9 Hypothyroidism type: acquired Physical deconditioning R53.81 COPD (chronic obstructive pulmonary disease) J44.9 Gout M10.9 Alcohol abuse F10.10 Anemia D64.9 Anemia type: unspecified type
--- NOTE | 2021-01-31 16:13 | PM.ACPR ---
Acute Procedures Central Line Placement^: Right Femoral: Time out performed: Yes Patient placed on monitor/pulse ox: Yes MD prep: mask, gown and gloves Central line prep: Chlorhexidine scrub Local anesthesia used: lidocaine 1% Amount of anesthesia used (ml): 10 Ultrasound used for placement: Yes Central line lumen inserted: triple Post procedure: sutured in place, good blood return and all ports aspirated, flushed, capped Patient tolerated procedure: well and no complications Complications: none
[2021-01-31] MEDS: FUROsemide 100 MG in sodium chloride 0.9% 40 ML 20 MG IV (16:38)
[2021-01-31] MEDS: dexmedetomidine 400 MCG in sodium chloride 0.9% (100 ml) 100 ML IV (16:39)
--- NOTE | 2021-01-31 16:55 | P.TS_ITS ---
Transfer Summary Providers Date of Admission: 01/29/21 15:02 Date of Discharge: 01/31/21 Attending Provider at Admission: Chapincito Pressley MD Attending Provider at Transfer: Chapincito Pressley MD Primary Care Provider: SAURABH Lam Anticipated Date of Transfer: Anticipated date of transfer: 01/31/21 Receiving Facility & Provider: Receiving Provider: [] Receiving facility: [] Diagnoses at Discharge Discharge Diagnosis (1) Renal failure: Status: Acute (2) Encephalopathy: Status: Acute (3) Systolic heart failure: Status: Acute (4) Pneumonia: Status: Acute (5) End-stage liver disease: Status: Acute (6) Cirrhosis: Status: Acute Qualifiers: Hepatic cirrhosis type: alcoholic cirrhosis Ascites presence: with ascites Qualified Code(s): K70.31 - Alcoholic cirrhosis of liver with ascites (7) Digoxin toxicity: Status: Acute (8) Ascites: Status: Acute (9) Generalized weakness: Status: Acute (10) Elevated bilirubin: Status: Acute (11) Pleural effusion: Status: Inactive (12) Hypothyroidism: Status: Chronic Qualifiers: Hypothyroidism type: acquired Qualified Code(s): E03.9 - Hypothyroidism, unspecified (13) Physical deconditioning: Status: Acute (14) COPD (chronic obstructive pulmonary disease): Status: Acute (15) Gout: Status: Acute (16) Alcohol abuse: Status: Acute (17) Anemia: Status: Acute Qualifiers: Anemia type: unspecified type Qualified Code(s): D64.9 - Anemia, unspecified Reason for Visit Reason for Visit: LOW BLOOD SUGAR/ JAUNDICED Hospital Course Hospital Course Omer Danielle is a 60 year old male with pmh of hypothyroidism,gout,alcohol abuse, alcholic liver cirrhosis, HFrEF, a.fib, CAD S/P CABG, DVT with I.VC Filter, COPD, came in with c/o worsening weakness,physical decline,worsening mentation started started 3/4 days back.Upon arrival in the ER he was worked up for the above mentioned complaint. ER physician talked to [facility] for possible transfer given INR and T bili were elevated hepatology at [place] did not feel there is anything different they would do at this point although they do think they will need to see him at some point to evaluate him as a transplant candidate. Patient was worked up for above mention complaint. Pertinent labs in ER : Ammonia :53, INR: 1.74,T.Bili: 5.9, AST:53 ,ALT: 29 , ALP: 366, ,BUN: 24, SCR : 2.8 , Glucose: 87 , WBC:5.44, Serum Digoxin level:1.7 . Pertinent imaging studies : RIGHT UPPER QUADRANT ULTRASOUND: Small amount of ascites. Small RIGHT pleural effusion. Advancedd cirrhosis. xRAY CHEST : bilateral lower lobe patchy opacities. bilateral pleural effusions. ER Medications: Digoxin immune romaine : 40 mg I.V 81 Dose as well Levofloxacin 750 mg i.v * 1 dose. Hospital course was complicated by development of acute renal failure secondary to hepatorenal syndrome; nephrology was on board; For Renal failure secondary to hepatorenal syndrome, secondary to alcoholic liver cirrhosis. : CT A/P demonstrated no evidence of obstrutive pathology; C.T Abdomen and pelvis done : There is a large amount of ascites and soft tissue anasarca, likely cardiac in origin in this patient with findings consistent with congestive heart failure. Renal ultrasound:Unremarkable kidneys. Currently on octreotide 200 mg 3 times daily SC. Albumin 1.5 gm per KG body weight on day 1 as well as albumin 1 g/kg body weight daily. Lasix drip. Levophed drip. Dobutamine drip. Urine electrolytes ordered. Dose medications for GFR less than 15. Avoid usual nephrotoxic agents.For sepsis 2/2 to PNA :patient was hypothermic , hypotensive, pneumonia on chest x-ray and CT. Blood cultures:NTD Follow Sputum culture: Urine culture: Lactic acid:1.5; Pro-Himanshu: 0.78; Continue Zyvox and Zosyn. For his Hepatic encephalopathy: Patient was on lactulose 30 gm every 4h and had good 4-5 bowel movement last night. Continued Lactulose 30 mg TID. Zyvox 600 mg IV every 12h (01/30--) Zosyn 3.375 gm IV every 8 hours day ( 01/30--) Initially on Cef 1 gm q24 h daily (01/29-01/30 ).Albumin 1.5 gm per KG body weight on day 1 as well as albumin 1 g/kg body weight daily. Correct electrolytes. Will consider Rifaximin. For his Systolic heart failure: HFrEF: Decompensated systolic heart failure: 2D Echo : Severely decreased left ventricular systolic function. Global left ventricular hypokinesis. Left ventricular ejection fraction is estimated at 25 %. There appeared to be septal bounce.flattened septum in diastole consistent with right ventricle volume overload. Grade II/IV diastolic dysfunction,moderately elevated filling pressures.Severely increased right ventricular size. Severely decreased right ventricular systolic function. Moderate pulmonary. Initially on I.V lasix was later switched to Lasix drip as he was severely volume overloaded and was anuric. Continues to be on BIPA and he was also start ed on precedex drip as he was axious and was not tolerating BIPAP. Digoxin toxicity: Received Digoxin immune romaine : 40 mg I.V * 1 dose in ER. We continued to monitor any signs of digoxin toxicity and continued to corret electrolytes. For his Ascites: C.T Abdomen and pelvis done : There is a large amount of ascites and soft tissue anasarca, likely cardiac in origin in this patient with findings consistent with congestive heart failure. Currently do not have abdominal pain. Will Do paracentesis to r/o SBP as well as cell cytology for possible malignancy work up ( HCC ).Currently covered with broad spectrum abxs. Decompensated End-stage liver disease: 2/2 to alcholic liver Cirrhosis: MELD :Na : 30 : (52.6)% Estimated 3 Months Mortality. Patient should be evaluated for transplant at some point after this acute event is over. Patient has been accepted at [facility] for higher level of care as the patient will likely need CRRT.Currently awaiting bed. Physical Exam Narrative: EXAM NARRATIVE: Awake HENMT: COMMON NORMALS: normocephalic and atraumatic HEAD & SCALP: normocephalic and atraumatic Chest: COMMONS NORMALS: normal inspection of the chest and normal palpation of entire chest wall CHEST: Yes Symmetrical chest wall rise OTHER: B/L Wheezing Present in both lungs breaux. Bilateral diffuse crackles present in both lungs Resp: COMMON NORMALS: normal respiratory effort and clear to auscultation bilaterally EFFORT & INSPECTION: Yes symmetric chest movement AUSCULTATION: clear to auscultation bilaterally Cardio: COMMON NORMALS: regular rate, regular rhythm, S1 normal heart sound present, S2 normal heart sound present, No gallops present (Cardio), No murmurs present (Cardio), No rub (Cardio) and Peripheral pulses 2+ throughout RATE: regular rate RHYTHM: regular rhythm HEART SOUNDS: S1 normal heart sound present and S2 normal heart sound present PERIPHERAL PULSES: Peripheral pulses 2+ throughout GI: COMMON NORMALS: Normal to inspection, nondistended, normoactive bowel sounds present, Soft to palpation, non-tender, No hepatosplenomegaly present and no masses AUSCULTATION: Yes normoactive bowel sounds PALPATION: Yes Soft to palpation and Yes No hepatosplenomegaly present RECTAL EXAM: Yes deferred OTHER: Distended abdomen, normoactive bowels, fluid thrill's Extremity: NARRATIVE EXTREMITY EXAM: 3+B/L Pitting Pedal edema present Urinary Catheter Management^: Tsai: Cath Placed During This Visit: yes Reason for Continuing Indwelling Catheter: Accurate Measurement of Urinary Ou tput in Critically Ill Patients Urinary Catheter Date of Insertion: 01/29/21 Urinary Catheter Time of Insertion: 14:30 TS Data Data Completed and Pending: Completed Studies During Hospitalization Category Date Time Status CT chest abd pel wo con Routine Cat Scan 01/30/21 10:56 Completed XR chest 1V zeke ble [id number] Stat Exams 01/29/21 10:44 Completed CV echo complete* [id number] Routine Ultrasound 01/30/21 10:58 Com[place] liver [id number] St at Ultrasound 01/29/21 13:24 Completed US renal BI* [id number] Routine Ultrasound 01/31/21 19:15 Completed Pending at discharge Category Date Time Status Blood Culture Sta t Lab 01/29/21 11:08 Results Complete Blood Co unt w/Auto AM LABS Lab 02/01/21 04:00 Ordered Comprehensive Met abolic Panel AM LA BS Lab 02/01/21 04:00 Ordered Labs from last 24 hours 01/31/21 01/31/21 01/31/21 07:37 05:24 05:24 WBC RBC Hgb Hct MCV MCH MCHC RDW Plt Count MPV Neut % (Auto) Lymph % (Auto) [place] % (Auto) Eos % (Auto) Baso % (Auto) Neut # (Auto) Lymph # (Auto) [place] # (Auto) Eos # (Auto) Baso # (Auto) Nucleated RBC % (a uto) Nucleated RBCs # Specimen Type Arterial Sample Site Radial, left ABG pH 7.52 H ABG pCO2 22.3 L ABG pO2 76.2 L ABG HCO3 18.1 L ABG Base Excess -3.0 L Gume Test Pos Hematocrit 39.6 L O2 Delivery Device Bipap FiO2 30.0 Car Salter ID Leonardo Sodium Potassium Chloride Carbon Dioxide Anion Gap BUN Creatinine GFR Calculation Glucose POC Glucose 118 H 56 L Calculated Osmolal ity Calcium Total Bilirubin AST ALT Alkaline Phosphata se Ammonia Total Protein Albumin Globulin 01/31/21 01/31/21 01/31/21 03:31 03:31 02:21 WBC 9.2 RBC 5.08 Hgb 12.4 Hct 35.7 L MCV 70.3 L MCH 24.4 L MCHC 34.7 D RDW 21.8 H Plt Count 168 MPV 8.0 Neut % (Auto) 82.3 Lymph % (Auto) 10.3 [place] % (Auto) 3.9 Eos % (Auto) 2.7 Baso % (Auto) 0.4 Neut # (Auto) 7.56 Lymph # (Auto) 1.0 [place] # (Auto) 0.4 Eos # (Auto) 0.3 Baso # (Auto) 0.0 Nucleated RBC % (a uto) 0 Nucleated RBCs # 0.0 Specimen Type Sample Site ABG pH ABG pCO2 ABG pO2 ABG HCO3 ABG Base Excess Gume Test Hematocrit O2 Delivery Device FiO2 Car Salter ID Sodium 139 Potassium 3.3 L Chloride 106 Carbon Dioxide 18 L Anion Gap 18.3 BUN 28 H Creatinine 3.3 H GFR Calculation 19.1 L Glucose 61 L POC Glucose 107 Calculated Osmolal ity 291 Calcium 7.1 L Total Bilirubin 7.3 H* AST 66 H ALT 28 Alkaline Phosphata se 334 H Ammonia Total Protein 5.4 L Albumin 2.6 L Globulin 2.8 01/31/21 01/30/21 01/30/21 00:04 22:24 22:17 WBC RBC Hgb Hct MCV MCH MCHC RDW Plt Count MPV Neut % (Auto) Lymph % (Auto) [place] % (Auto) Eos % (Auto) Baso % (Auto) Neut # (Auto) Lymph # (Auto) [place] # (Auto) Eos # (Auto) Baso # (Auto) Nucleated RBC % (a uto) Nucleated RBCs # Specimen Type Sample Site ABG pH ABG pCO2 ABG pO2 ABG HCO3 ABG Base Excess Gume Test Hematocrit O2 Delivery Device FiO2 Car Salter ID Sodium Potassium Chloride Carbon Dioxide Anion Gap BUN Creatinine GFR Calculation Glucose POC Glucose 111 H 46 L Calculated Osmolal ity Calcium Total Bilirubin AST ALT Alkaline Phosphata se Ammonia 39 Total Protein Albumin Globulin Vitals: Last Vital Signs Temp 98.4 F 01/31/21 05:37 Pulse 77 01/31/21 16:30 Resp 29 H 01/31/21 16:30 BP 84/51 01/31/21 16:30 Pulse Ox 95 01/31/21 16:30 TS Medications Medications Home Medications neomycin 3.5 mg-polymyxin 10,000 unit-hydrocort 10 mg/mL eye drop,susp 1 drp OPHTHALMIC (EYE) BID 7 Days #7.5 ml 12/14/20 [Rx Confirmed 01/29/21] melatonin 5 mg capsule 10 mg PO BEDTIME PRN 12/17/20 [History Confirmed 01/29/21] multivit,Ca,min-iron 8 mg-folic acid 200 mcg-lycopene 600 mcg tablet 1 tab PO DAILY@12/17/20 [History Confirmed 01/29/21] alprazolam 0.5 mg tablet 0.5 mg PO TID PRN 30 Days #90 tab 01/15/21 [Rx Confirmed 01/29/21] fluticasone propionate 50 mcg/actuation nasal spray,suspension 1 spray INTRANASAL DAILY 30 Days #16 g 01/15/21 [Rx Confirmed 01/29/21] tramadol 50 mg tablet 50 mg PO Q8H PRN 5 Days #15 tab 01/22/21 [Rx Confirmed 01/29/21] Coreg 6.25 mg PO BID@01/29/21 [History Confirmed 01/29/21] Lexapro 20 mg PO DAILY@209901/29/21 [History Confirmed 01/29/21] Miralax 17 g PO DAILY PRN 01/29/21 [History Confirmed 01/29/21] allopurinol 100 mg PO DAILY@209901/29/21 [History Confirmed 01/29/21] atorvastatin 80 mg PO DAILY@209901/29/21 [History Confirmed 01/29/21] clopidogrel 75 mg PO DAILY@01/29/21 [History Confirmed 01/29/21] digoxin 125 mcg PO DAILY@01/29/21 [History Confirmed 01/29/21] furosemide 40 mg PO DAILY@01/29/21 [History Confirmed 01/29/21] levothyroxine 100 mcg PO DAILY@209901/29/21 [History Confirmed 01/29/21] potassium chloride 20 meq PO DAILY@01/29/21 [History Confirmed 01/29/21] Active Medications Acetaminophen (Acetaminophen 325 Mg Tablet) 650 mg PO Q6H PRN PRN Reason: Mild/Mod Pain Or Temp >/= 101 Hydrocodone Bitart/Acetaminophen (Hydrocodone-Acetaminophen 5-325 Mg Tablet) 1 tab PO Q4H PRN PRN Reason: MODERATE TO SEVERE PAIN Albuterol/Ipratropium (Ipratropium-Albuterol 3 Ml Neb) 3 ml INHALATION Q4H.RESPIRATORY GLADYS Last Admin: 01/31/21 15:44 Dose: Not Given Documented by: Allopurinol (Allopurinol 100 Mg Tablet) 100 mg PO DAILY@2100 [facility] Last Admin: 01/30/21 21:37 Dose: 100 mg Documented by: Alprazolam (Alprazolam 0.5 Mg Tablet) 0.5 mg PO TID PRN PRN Reason: anxiety Atorvastatin Calcium (Atorvastatin 40 Mg Tablet) 80 mg PO DAILY@2100 [facility] Last Admin: 01/30/21 21:37 Dose: 80 mg Documented by: Fluticasone Propionate (Fluticasone Nasal Henriette 16gm Btl) 1 spray INTRANASAL DAILY [facility] Last Admin: 01/31/21 09:17 Dose: Not Given Documented by: Heparin Sodium (Beef Lung) (Heparin 5,000 Unit/Ml Inj 1 Ml) 5,000 unit SUBCUT Q12H [facility] Last Admin: 01/31/21 14:30 Dose: 5,000 unit Documented by: Norepinephrine Bitartrate 4 mg (/ Dextrose) 254 mls @ 0 mls/hr IV .Q0M [facility]; Protocol Last Admin: 01/31/21 14:28 Dose: 16 mcg/min, 61 mls/hr Documented by: Piperacillin Sod/Tazobactam (Sod 3.375 gm/ Sodium Chloride) 50 mls @ 12.5 mls/hr IV Q8H [facility]; Protocol Last Infusion: 01/31/21 11:46 Dose: Infused Documented by: Linezolid (Zyvox Premix) 600 mg in 300 mls @ 300 mls/hr IV Q12H [facility]; Protocol Last Infusion: 01/31/21 14:04 Dose: Infused Documented by: Dobutamine HCl/Dextrose (Dobutamine Drip) 500 mg in 250 mls @ 0 mls/hr IV .Q0M [facility]; Protocol Last Admin: 01/31/21 09:10 Dose: 3 mcg/kg/min, 6.5 mls/hr Documented by: Albumin Human (Albumin) 12.5 gm in 50 mls @ 18 mls/hr IV CONT [facility] Stop: 02/01/21 08:59 Last Admin: 01/31/21 14:29 Dose: 18 mls/hr Documented by: Furosemide 100 mg/ Sodium (Chloride) 50 mls @ 0 mls/hr IV .Q0M [facility]; Protocol Last Admin: 01/31/21 16:38 Dose: 40 mg/hr, 20 mls/hr Documented by: Dexmedetomidine HCl 400 mcg/ (Sodium Chloride) 104 mls @ 0 mls/hr IV .Q0M [facility]; Protocol Last Admin: 01/31/21 16:39 Dose: 0.19 mcg/kg/hr, 3.5 mls/hr Documented by: Lactulose (Lactulose Oral Liq 20 Gm/30 Ml Udc) 30 gm PO TID [facility] Levalbuterol HCl (Levalbuterol 0.63 Mg/3 Ml Neb) 0.63 mg INHALATION Q6H.R ESPIRATORY [facility] Last Admin: 01/31/21 15:45 Dose: 0.63 mg Documented by: Levothyroxine Sodium (Levothyroxine 100 Mcg Tablet) 100 mcg PO DAILY@2100 [facility] Last Admin: 01/30/21 21:37 Dose: 100 mcg Documented by: Naloxone HCl (Naloxone 0.4 Mg/Ml Sdv) 0.1 mg IVP Q2M PRN PRN Reason: OPIATERV Non-Formulary Medication (Melatonin) 10 mg PO BEDTIME PRN PRN Reason: Sleep Octreotide Acetate (Octreotide 100 Mcg/Ml Sdv) 200 mcg SUBCUT Q8H [facility] Last Admin: 01/31/21 11:13 Dose: 200 mcg Documented by: Ondansetron HCl (Ondansetron 2 Mg/Ml Sdv 2 Ml) 4 mg IVP Q8H PRN PRN Reason: vomiting, or N/V if npo Ondansetron HCl (Ondansetron 2 Mg/Ml Sdv 2 Ml) 4 mg IVP Q6H PRN PRN Reason: NAUSEA AND VOMITING Pantoprazole Sodium (Pantoprazole Dr 40 Mg Tablet) 40 mg PO DAILY [facility] Last Admin: 01/31/21 09:19 Dose: Not Given Documented by: Tramadol HCl (Tramadol 50 Mg Tablet) 50 mg PO Q8H PRN PRN Reason: pain Discharge Plan Discharge Patient Disposition: Home Condition: Stable Prescriptions: Continued [id number] 3.5-10,000-10 mg-unit-mg/mL drops,suspension 1 drp ophthalmic (eye) BID 7 Days Qty: 7.5 RF: 0 alprazolam 0.5 mg tablet 0.5 mg PO TID PRN (Reason: anxiety) 30 Days Qty: 90 RF: 0 fluticasone propionate [Flonase Allergy Relief] 50 mcg/actuation spray,suspension 1 spray intranasal DAILY 30 Days Qty: 16 RF: 2 melatonin 5 mg capsule 10 mg PO BEDTIME PRN (Reason: Sleep) RF: 0 Centrum Men 8 mg iron- 200 mcg-600 mcg tablet 1 tab PO DAILY@ RF: 0 tramadol 50 mg tablet 50 mg PO Q8H PRN (Reason: pain) 5 Days Qty: 15 RF: 0 furosemide 40 mg tablet 40 mg PO DAILY@ RF: 0 atorvastatin 80 mg tablet 80 mg PO DAILY@2099 RF: 0 Coreg 6.25 mg tablet 6.25 mg PO BID@ RF: 0 clopidogrel 75 mg tablet 75 mg PO DAILY@ RF: 0 allopurinol 100 mg tablet 100 mg PO DAILY@2099 RF: 0 potassium chloride 20 mEq tablet,ER particles/crystals 20 meq PO DAILY@ RF: 0 digoxin 125 mcg (0.125 mg) tablet 125 mcg PO DAILY@ RF: 0 Miralax 17 gram/dose powder 17 g PO DAILY PRN (Reason: Constipation) RF: 0 Lexapro 20 mg tablet 20 mg PO DAILY@2099 RF: 0 levothyroxine 100 mcg capsule 100 mcg PO DAILY@2099 RF: 0 Discharge Orders: Discharge Order (Routine); Ordered 01/31/21 Ordered By: Chapincito Pressley Discharge Diet: Cardiac Discharge Activity: Bedrest Transfer Attestations Time Spent in Transfer Care*: greater than 30 min Specific Discharge Activities: Specific discharge activities: educating patient, educating and/or supporting family/caregiver, discussing with pcp/other providers, discussing with case monitor/social workers/dc planners, documenting/other paperwork and evaluating patient/reviewing data Status at Transfer: Cognitive status at transfer: mildly impaired cognition , Behavioral status at transfer: cooperative , Overall status at transfer: patient is not back to baseline Quality Metrics Clinical Quality Measures: During this hospital stay, did patient experience: None Coding Level of Care Code Acute Concrete Technician for Chg Fwd Diagnoses Renal failure N19 Encephalopathy G93.40 Systolic heart failure I50.20 Pneumonia J18.9 End-stage liver disease K72.90 Cirrhosis K70.31 Hepatic cirrhosis type: alcoholic cirrhosis Ascites presence: with ascites Digoxin toxicity T46.0X1A Ascites R18.8 Generalized weakness R53.1 Elevated bilirubin R17 Pleural effusion J90 Hypothyroidism E03.9 Hypothyroidism type: acquired Physical deconditioning R53.81 COPD (chronic obstructive pulmonary disease) J44.9 Gout M10.9 Alcohol abuse F10.10 Anemia D64.9 Anemia type: unspecified type
[2021-01-31 18:33] LABS: Glucose Point of Care 117 mg/dL (70-110)
--- NOTE | 2021-01-31 19:15 | USR_ITS ---
PROCEDURE INFORMATION: Exam: US Retroperitoneal; Complete; Kidneys and Bladder Exam date and time: 01/31/2021 9:39 AM Age: 60 years old Clinical indication: Abnormal findings; Abnormal lab test; Abnormal kidney function lab tests; Additional info: Willie TECHNIQUE: Imaging protocol: Real-time ultrasound of the retroperitoneum with image documentation. Complete exam focused on the kidneys and bladder. COMPARISON: US abdomen limited [id number] 12/21/2020 8:09 AM FINDINGS: Pleural space: Bilateral pleural effusions noted. Right kidney: Normal. No stones. No hydronephrosis. Left kidney: Normal. No stones. No hydronephrosis. Aorta: The visualized mid and proximal abdominal aorta is unremarkable. Intraperitoneal space: A small amount of ascites is present. Urinary bladder: The urinary bladder is decompressed with a Tsai catheter in place. Other findings: The partially visualized liver and spleen are unremarkable. US/US renal BI* [id number] IMPRESSION: 1. Unremarkable kidneys. 2. Small amount of ascites. 3. Bilateral pleural effusions.
--- NOTE | 2021-01-31 22:02 | PC.NURSE ---
Transfer Information Pt accepted at [facility], Dr. Foley accepting care of patient. Consent received via telephone from . Bed number 8309 given by Shane Mckenna RN. Floor # for report [phone]. Report called to Piyush Hook RN at [phone].
[2021-01-31] MEDS: norepinephrine 8 MG in dextrose 5 % 500 ML 61 MG IV (22:24)
--- NOTE | 2021-01-31 23:58 | PC.NURSE ---
pt left via [facility]. Pilar notified of departure time. Receiving nurse notified of departure time.
[2021-02-01 00:04] VITALS: BP 86/48; PULSE 78; RESP 29; TEMP 36.8; O2SAT 96
--- NOTE | 2021-02-01 19:55 | PC.RESP ---
Pulmonary Rehab information sent to patient.
== END 2021-01-31 23:58 | disposition skilled nursing facility (03) | DRG 682 ==
LOC: ER 12:59 → MEDSURG 15:50 → ICU 01-30 12:21
PROVIDERS: Internal Medicine; Admitting Provider Internal Medicine; Emergency Provider Family Medicine; PCP Nurse Practitioner Family; Visit Provider Internal Medicine
DX: N17.9 Acute kidney failure, unspecified (principal); A41.9 Sepsis, unspecified organism; I50.23 Acute on chronic systolic (congestive) heart failure; J18.9 Pneumonia, unspecified organism; I13.0 Hypertensive heart and chronic kidney disease with heart failure and stage 1 through stage 4 chronic kidney disease, or unspecified chronic kidney disease; J44.0 Chronic obstructive pulmonary disease with (acute) lower respiratory infection; T68.XXXA Hypothermia, initial encounter; E03.9 Hypothyroidism, unspecified; M10.9 Gout, unspecified; K70.31 Alcoholic cirrhosis of liver with ascites; F10.10 Alcohol abuse, uncomplicated; N18.9 Chronic kidney disease, unspecified; I25.10 Atherosclerotic heart disease of native coronary artery without angina pectoris; Z95.1 Presence of aortocoronary bypass graft; Z86.718 Personal history of other venous thrombosis and embolism; Z95.828 Presence of other vascular implants and grafts; D64.9 Anemia, unspecified; F41.8 Other specified anxiety disorders; Z87.891 Personal history of nicotine dependence; I25.2 Old myocardial infarction; E78.2 Mixed hyperlipidemia; I27.20 Pulmonary hypertension, unspecified; E55.9 Vitamin D deficiency, unspecified; T46.0X5A Adverse effect of cardiac-stimulant glycosides and drugs of similar action, initial encounter; Z79.51 Long term (current) use of inhaled steroids; Z79.02 Long term (current) use of antithrombotics/antiplatelets; I95.9 Hypotension, unspecified; K72.90 Hepatic failure, unspecified without coma; E86.0 Dehydration
CPT/HCPCS: 36415; 36416; 36600; 51702; 71045; 71250; 74176; 76705; 76770; 80051; 80053; 80162; 81001; 82140; 82330; 82550; 82803; 82805; 82962; 83605; 83690; 83735; 83880; 84145; 84443; 84484; 85025; 85610; 85730; 87040; 93005; 93306; 94640; 94660; 96365; 96367; 96372; 99291; C1751; J0696; J1162; J1250; J1644; J1940; J1956; J2020; J2354; J2543; J7030; J7614; P9047; Q3014